=== PATIENT | female | born 1940 | race Two or more races ===

== ENCOUNTER 2016-10-03 14:20 | Inpatient (IN) | payer MEDICARE ==
[~2016-10-03] VITALS: Ht 163.8 cm; Wt 97.7 kg
[2016-10-03] MEDS ORDERED: RAMI25CA (14:30)
[2016-10-03] MEDS ORDERED: SIMV20TA2 (14:30)
[2016-10-03] MEDS ORDERED: ALBU17IN (14:30)
[2016-10-03] MEDS ORDERED: FURO20TA2 (14:30)
[2016-10-03] MEDS ORDERED: OMEP20CA3 (14:30)
[2016-10-03] MEDS ORDERED: FLUT1SPR2 (14:30)
[2016-10-03] MEDS ORDERED: SERT-155 (14:30)
[2016-10-03] MEDS ORDERED: FLUT11IN (14:30)
[2016-10-03] MEDS ORDERED: LEVO100T5 (14:30)
[2016-10-03] MEDS ORDERED: NS 1,000 ML IV ONE (15:00)
[2016-10-03] MEDS ORDERED: FAMOTIDINE IV BAG 20 MG in APPROPRIATE DILUENT 1 EA IV ONE (15:00)
[2016-10-03] MEDS ORDERED: ONDANSETRON 4MG/2ML VIAL (J2405) IV ONE (15:00)
[2016-10-03 15:05] LABS: BASO % 0.1 % (0.0-1.0); EOS % 0.2 % (0.0-3.0); LARGE UNSTAINED CELL # 0.1 K/mm3 (0.0-0.4); LARGE UNSTAINED CELL % 0.6 % (0.0-4.0); LYMPH # 0.7 K/mm3 (1.5-4.5); LYMPH % 5.4 % (24.0-44.0); MEAN CORPUSCULAR HEMOGLOBIN 29.4 pg (27.0-33.0); MEAN CORPUSCULAR HGB CONC 33.9 g/dl (32.0-36.5); MEAN CORPUSCULAR VOLUME 86.8 fl (80.0-96.0); MONO # 0.4 K/mm3 (0.0-0.8); MONO % 3.4 % (0.0-5.0); NEUTROPHILS # 11.2 K/mm3 (1.8-7.7); NEUTROPHILS % 90.3 % (36.0-66.0); PLATELET COUNT, AUTOMATED 229 k/mm3 (150-450); RED CELL DISTRIBUTION WIDTH 12.7 % (11.5-14.5); WHITE BLOOD COUNT 12.4 K/mm3 (4.0-10.0)
[2016-10-03 15:23] LABS: INR 1.11
[2016-10-03 15:27] LABS: ALBUMIN 3.2 GM/DL (3.2-5.2); ALBUMIN/GLOBULIN RATIO 0.73 (1.00-1.93); BILIRUBIN,DIRECT 0.3 MG/DL (0.0-0.2); BILIRUBIN,TOTAL 0.9 MG/DL (0.2-1.0); CALCIUM LEVEL 8.7 MG/DL (8.8-10.2); CREATININE FOR GFR 0.97 MG/DL (0.55-1.02); GLOMERULAR FILTRATION RATE 59.9 (>39); POTASSIUM SERUM 3.5 MEQ/L (3.5-5.1); TOTAL PROTEIN 7.6 GM/DL (6.4-8.2)
[2016-10-03] MEDS: MORPHINE 2 MG/ML 1ML SYRINGE IV PRN ×2 (15:31→16:34)
--- NOTE | 2016-10-03 16:08 | REP ---
CT study of the abdomen and pelvis without IV or oral contrast: History: Abdominal pain generalized with diarrhea. No comparison images. Findings: Preliminary digital mail agent radiograph demonstrates an unremarkable bowel gas pattern. Tubal ligation bands are visible in the pelvis. Axial CT images demonstrate linear fibrotic changes in the lung bases bilaterally and a granulomatous calcification on the right. The liver and the spleen are normal in size homogeneous in texture. There is a 2.7 cm accessory splenule medial to the spleen. Gallbladder is unremarkable. No pancreatic abnormality is seen. There is mild to moderate retroperitoneal and small bowel mesenteric lymphadenopathy. The largest of these nodes is a pericaval node between the vena cava and the aorta measuring 2.1 x 1.5 x 3.5 cm. There are multiple smaller lymph nodes. There is diverticulosis affecting the sigmoid colon. There is an abscess in the right lower quadrant which appears to communicate with a mildly dilated thick-walled appendix. The abscess cavity has an air-fluid level and a. It measures 3.4 cm in greatest diameter. There is inflammation and adjacent small bowel loop. This is not felt to be a diverticular abscess. There is inflammatory reaction and some pericolic gutter fluid is noted. A small quantity of fluid is seen in the pelvic reflections. The patient is status post hysterectomy. No free intraperitoneal air is noted. Impression: 1. Findings compatible with acute perforated appendicitis with a 3.4 cm periappendiceal abscess in the right lower quadrant. 2. Mild mesenteric and retroperitoneal lymphadenopathy, question lymphoma. The largest lymph node measures 2.1 x 1.5 x 3.5 cm. Signed by Nikolas Arriola MD 10/03/2016 06:09 P
[2016-10-03] MEDS ORDERED: PIPERACILLIN/TAZOBACTAM SOD 3.375 GM in D5W MINI-BAG PLUS 50 ML IV ONE (16:15)
[2016-10-03] MEDS ORDERED: FLON1SPR (16:36)
[2016-10-03] MEDS ORDERED: VITMTA PO (16:36)
[2016-10-03] MEDS ORDERED: SIMV20TA2 PO (16:36)
[2016-10-03] MEDS ORDERED: ALBU17IN INH (16:36)
[2016-10-03] MEDS ORDERED: LEVO100T54 PO (16:36)
[2016-10-03] MEDS ORDERED: SERT50TA PO (16:36)
[2016-10-03] MEDS ORDERED: ASPI81TA7 PO (16:36)
[2016-10-03] MEDS ORDERED: RAMI25CA PO (16:36)
[2016-10-03] MEDS ORDERED: OMEP20CA3 PO (16:36)
[2016-10-03] MEDS ORDERED: FLUT11IN INH (16:36)
[2016-10-03] MEDS ORDERED: FURO20TA2 PO (16:36)
[2016-10-03] MEDS ORDERED: metroNIDAZOLE 500 MG in APPROPRIATE DILUENT 1 EA IV SCH (17:00)
[2016-10-03] MEDS ORDERED: ONDANSETRON 4MG/2ML VIAL (J2405) IV PRN (17:00)
[2016-10-03] MEDS ORDERED: MORPHINE 4 MG/ML 1ML SYRINGE IV PRN (17:00)
[2016-10-03 17:41] VITALS: BP 140/63
[2016-10-03] MEDS: metroNIDAZOLE 500 MG in APPROPRIATE DILUENT 1 EA IV SCH (18:40)
[2016-10-03] MEDS: NORCO, ANEXSIA 5/325MG TABLET (HYDROcodone/ACETAMINOPHEN) PO PRN ×2 (18:40→21:50)
[2016-10-03] MEDS: LR 1,000 ML IV SCH (18:40)
[2016-10-03 21:00] VITALS: BP 117/55
[2016-10-03] MEDS: SENOKOT S TAB PO SCH (21:00)
[2016-10-03] MEDS: FAMOTIDINE 20 MG TAB PO SCH (21:47)
[2016-10-04] MEDS: PIPERACILLIN/TAZOBACTAM SOD 3.375 GM in D5W MINI-BAG PLUS 50 ML IV SCH ×5 (00:12→23:21)
[2016-10-04] MEDS: metroNIDAZOLE 500 MG in APPROPRIATE DILUENT 1 EA IV SCH ×3 (01:35→18:55)
[2016-10-04] MEDS: ACETAMINOPHEN TAB 650MG DOSE (2X325MG) PO PRN (04:15)
[2016-10-04] MEDS: LR 1,000 ML IV SCH ×3 (04:15→16:37)
[2016-10-04 05:55] VITALS: BP 116/58
[2016-10-04] MEDS: SENOKOT S TAB PO SCH ×2 (08:52→20:45)
[2016-10-04] MEDS: FAMOTIDINE 20 MG TAB PO SCH ×2 (09:26→20:45)
[2016-10-04] MEDS: NORCO, ANEXSIA 5/325MG TABLET (HYDROcodone/ACETAMINOPHEN) PO PRN ×3 (09:27→23:30)
--- NOTE | 2016-10-04 11:00 | HPEPDOC ---
General Date of Admission October 03, 2016 at 16:52 Attending Physician: PEYMAN MOYER MD Chief Complaint The patient is a 75-year-old female admitted with a reason for visit of Acute Perforated Appendicitis;Peritoneal Abscess. Source: Patient Exam Limitations: No limitations Timing/Duration: Week(s) (one week), Constant, Getting worse Severity: Severe Associated Symptoms: Fever, Chills, Loss of appetite, Malaise, Nausea (reports diarrhea up to 8 times a day. On the day of the ED presentation, patient reports fainting.) History of Present Illness Patient presents herself to the emergency room with complaints of 1 week history of ongoing abdominal pain. She describes the constant sharp pain on the middle upper abdomen extending from her epigastric area to the infraumbilical area. Started last Thursday of sudden onset. She denies any sick contacts. She initially describes pain located at the mid epigastric area. This was subsequently followed by passage of multiple loose stools. Patient reports up to 8 loose, watery stools a day. She followed up with her medical doctor the morning of presentation. She was subsequently sent to the emergency room for further evaluation. Initial assumption probably is some enteritis, diverticulitis. Also during this presentation, patient reports fainting spell due to weakness. Patient reports having no appetite, only drinking a small amount of liquids for the past week. Gets nauseated after taking anything orally. Reports low-grade fever. Home Medications Scheduled (Flonase Allergy Relief) 50 Mcg/Act Spr, 1 SPRAY NA DAILY, (Reported) Aspirin (Aspirin) 81 Mg Tab, 81 MG PO QHS, (Reported) Fluticasone Propionate (Flovent Hfa 110 MCG) 120 Puff/12 Gm Aero, 1 PUFF INH BID , (Reported) Furosemide (Furosemide) 20 Mg Tab, 20 MG PO DAILY, (Reported) Levothyroxine Sodium (Levoxyl) 100 Mcg Tab, 100 MCG PO DAILY, (Reported) Multivitamins *[facility]OCK[facility]* (Thera M Plus *[facility]OCK[facility]*) 1 Tab Tab, 1 TAB PO QHS , (Reported) Omeprazole (Omeprazole) 20 Mg Cap, 20 MG PO DAILY, (Reported) Ramipril (Ramipril) 2.5 Mg Cap, 2.5 MG PO QHS, (Reported) Sertraline Hcl (Sertraline HCl) 50 Mg Tab, 50 MG PO QHS, (Reported) Simvastatin (Simvastatin) 20 Mg Tab, 20 MG PO QHS, (Reported) Scheduled PRN Albuterol Sulfate (Ventolin Hfa) 200 Puff/8 Gm Aers, 2 PUFF INH Q4H PRN for SHORTNESS OF BREATH, (Reported) Allergies Coded Allergies: Codeine (Verified Adverse Reaction, Intermediate, 10/03/16) vomiting Family History Significant Family History: No pertinent family hx Social History * Smoker: Denies Alcohol: rarely Drugs: denies Recent Travel/Sick Contacts: Denies: Recent travel, Recent sick contacts Psychosocial History: No pertinent psych hx Review of Symptoms Constitutional: Reports: Fever, Malaise, Weakness Eyes: Denies: Pain, Vision change, Conjunctivae inflammation, Eyelid inflammation, Redness, Other ENT: Denies: Head Aches, Ear Pain, Dysphagia, Sinus Congestion, Post Nasal Drip , Sore Throat, Epistaxis, Other Symptoms Skin: Denies: Rash, Lesions, Jaundice, Bruising, Itching, Dry, Breakdown, Nail Changes, Other Pulmonary: Denies: Dyspnea, Cough, Pleuritic Chest Pain, Other Symptoms Cardiovascular: Denies: Chest Pain, Palpitations, Orthopnea, Paroxysmal Noc. Dyspnea, Edema, Lt Headedness, Other Symptoms Gastrointestinal: Reports: Nausea, Vomiting, Abdominal Pain, Diarrhea, Constipation, Melena, Hematochezia, Other Symptoms Genitourinary: Denies: Dysuria, Frequency, Incontinence, Hematuria, Retention, Other Symptoms Hematologic: Denies: Bruising, Bleeding Excessively, Petecchia, Purpura, Enlarged Lymph Nodes, Other Hematologic Endocrine: Denies: Polydipsia, Polyphagia, Polyuria, Heat Intolerance, Cold Intolerance, Other Endocrine Sx Musculoskeletal: Denies: Neck Pain, Back Pain, Shoulder Pain, Arm Pain, Hand Pain, Leg Pain, Foot Pain, Joint Pain, Muscle Pain, Spasms, Other Symptoms Neurological: Denies: Weakness, Numbness, Incoordination, Change in speech, Confusion, Seizures, Other Symptoms Psych: Denies: Mood Normal, Anxiety, Depression, Memory Issues, Thoughts of Self Harm, Anger, Thoughts of Harming Other, Other Psych Physical Examination General Exam: Positive: Alert, No Acute Distress Eye Exam: Positive: PERRLA, Conjunctiva & lids normal, EOMI, Negative: Sclera icteric ENT Exam: Positive: Atraumatic, Mucous membr. moist/pink, Pharynx Normal Neck Exam: Positive: Supple, Negative: JVD, thyromegaly Chest Exam: Positive: Clear to auscultation, Normal air movement Heart Exam: Positive: Rate Normal, Regular Rhythm, Normal S1, Normal S2, Negative: Murmurs, Rubs Abdomen Exam: Positive: Soft, Tenderness (patient tender to palpation over the midline periumbilical and infraumbilical area with some radiation to the suprapubic and right lower quadrant area, mild guarding), Negative: Mass Extremity Exam: Positive: Normal pulses, Negative: Clubbing, Cyanosis, Edema Skin Exam: Positive: Nl turgor and temperature, Negative: Breakdown, Lesion Neuro Exam: Positive: Normal Gait, Normal Speech, Cranial Nerves 3-12 NL, Reflexes 2+ Psych Exam: Positive: Mental status NL, Mood NL, Oriented x 3 Vital Signs Vital Signs Date Time Temp Pulse Resp B/P (MAP) Pulse Ox O2 Delivery O2 Flow Rate FiO2 10/04/16 09:27 18 10/04/16 05:55 97.9 60 116/58 (77) 90 Room Air Laboratory Data Labs 24H Laboratory Tests 2 10/03/16 14:59: White Blood Count 12.4H, Red Blood Count 4.07, Hemoglobin 12.0, Hematocrit 35.3L , Mean Corpuscular Volume 86.8, Mean Corpuscular Hemoglobin 29.4, Mean Corpuscular Hemoglobin Concent 33.9, Red Cell Distribution Width 12.7, Platelet Count 229, Neutrophils (%) (Auto) 90.3H, Lymphocytes (%) (Auto) 5.4L, Monocytes (%) (Auto) 3.4, Eosinophils (%) (Auto) 0.2, Basophils (%) (Auto) 0.1, Neutrophils # (Auto) 11.2H, Lymphocytes # (Auto) 0.7L, Monocytes # (Auto) 0.4, Eosinophils # (Auto) 0.0, Basophils # (Auto) 0.0, Large Unclassified Cells % 0.6 , Large Unclassified Cells # 0.1, Prothrombin Time 14.4, Prothromb Time International Ratio 1.11, Anion Gap 11, Glomerular Filtration Rate 59.9, Calcium Level 8.7L, Aspartate Amino Transf (AST/SGOT) 12L, Alanine Aminotransferase (ALT/SGPT) 17, Alkaline Phosphatase 82, Total Bilirubin 0.9, Direct Bilirubin 0.3H, Total Protein 7.6, Albumin 3.2, Albumin/Globulin Ratio 0.73L, Amylase Level 19L, Lipase 110 10/03/16 21:13: Urine Appearance CLEAR, Urine Color YELLOW, Urine pH 6.0, Urine Specific [place] 1.010, Urine Protein NEGATIVE, Urine Glucose (UA) NEGATIVE, Urine Ketones 1+H, Urine Urobilinogen 0.2, Urine Bilirubin NEGATIVE, Urine Leukocyte Esterase 1+H, Urine Blood NEGATIVE, Urine Nitrite NEGATIVE, Urine WBC (Auto) 9H , Urine RBC (Auto) 4H, Urine Hyaline Casts (Auto) 0, Urine Bacteria (Auto) 1+H, Urine Squamous Epithelial Cells 1, Urine Sperm (Auto) CBC/BMP Laboratory Tests 10/03/16 14:59 Red Blood Count 4.07, Mean Corpuscular Volume 86.8, Mean Corpuscular Hemoglobin 29.4, Mean Corpuscular Hemoglobin Concent 33.9, Red Cell Distribution Width 12.7 , Neutrophils (%) (Auto) 90.3 H, Lymphocytes (%) (Auto) 5.4 L, Monocytes (%) ( Auto) 3.4, Eosinophils (%) (Auto) 0.2, Basophils (%) (Auto) 0.1, Neutrophils # ( Auto) 11.2 H, Lymphocytes # (Auto) 0.7 L, Monocytes # (Auto) 0.4, Eosinophils # (Auto) 0.0, Basophils # (Auto) 0.0 Microbiology Microbiology 10/03/16 Urine Culture, Received Pending Problems (1) Acute perforated appendicitis Status: Acute Problem Text: I spoke with her the plans going forward. She has perforated appendicitis with a well localized abscess surrounding the tip of the appendix at this point. Would deal with the abscess first. Ideally would like the abscess collection drained percutaneously by radiology. This will be set up on Thursday. She appears stable now and not showing any signs of severe sepsis. I also discussed whether the different scenarios including possible need for surgery if drainage is not possible. Also if drainage is done, how to deal with the appendix afterwards. She reports she has had multiple colonoscopies, the last one was 4 years ago with single polyp found. I think if he chooses not to have interval appendectomy, her option would be just to have another colonoscopy to verify no other pathology causing the right lower quadrant inflammation/perforation. Her chances of having another recurrent attack of appendicitis usually comes back to same as her age within a few months if there are no appendicoliths and if she does not have any recurring or persistent pain symptoms. (2) Peritoneal abscess Status: Acute Problem Text: Patient has a 3 cm abscess as visualized in the CT of the abdomen and pelvis. Review of the images shows there are bowels close by. Unsure if drainage is possible. We will continue with IV antibiotics. Patient is on Zosyn and metronidazole. We'll repeat imaging on Thursday and consult interventional radiology for possible drainage of the abscess. Plan / VTE VTE Prophylaxis Ordered?: Yes Plan Plan Patient is admitted under my care. She started on Zosyn and metronidazole for antibiotic coverage. He will repeat the CT scan on Thursday and consult radiology for possible percutaneous drainage of the abscess. PEYMAN MOYER MD October 04, 2016 11:00
[2016-10-04] MEDS ORDERED: ALBUTEROL 90 MCG/ACT 8GM HFA INHALER INH PRN (11:15)
[2016-10-04 14:00] VITALS: BP 115/56
[2016-10-04] MEDS: FLUTICASONE PROP 0.05% NASAL SPRAY 16 GM (FLONASE) SCH (14:13)
[2016-10-04] MEDS: LEVOTHYROXINE 0.1 MG TAB (100 MCG) PO SCH (14:13)
[2016-10-04] MEDS: RAMIPRIL 2.5 MG CAP PO SCH (14:13)
[2016-10-04] MEDS: OMEPRAZOLE 20 MG CAP PO SCH (14:13)
[2016-10-04] MEDS: ENOXAPARIN 30 MG/0.3 ML SYR (J1650) SC SCH (14:13)
[2016-10-04] MEDS: SERTRALINE HCL 50 MG TAB PO SCH (14:13)
[2016-10-04] MEDS: FLUTICASONE HFA 110 MCG 12 GM INHALER (FLOVENT) INH SCH ×2 (14:17→21:00)
[2016-10-04] MEDS: SIMVASTATIN 20 MG TAB PO SCH (20:45)
[2016-10-04 22:00] VITALS: BP 117/57
[2016-10-05] MEDS: metroNIDAZOLE 500 MG in APPROPRIATE DILUENT 1 EA IV SCH ×3 (00:53→18:10)
[2016-10-05] MEDS: LR 1,000 ML IV SCH (04:49)
[2016-10-05] MEDS: LEVOTHYROXINE 0.1 MG TAB (100 MCG) PO SCH (05:06)
[2016-10-05] MEDS: PIPERACILLIN/TAZOBACTAM SOD 3.375 GM in D5W MINI-BAG PLUS 50 ML IV SCH ×4 (05:06→21:53)
[2016-10-05 06:00] VITALS: BP 122/56
[2016-10-05 06:13] LABS: BASO % 0.3 % (0.0-1.0); EOS # 0.1 K/mm3 (0.0-0.50); EOS % 1.4 % (0.0-3.0); LARGE UNSTAINED CELL # 0.1 K/mm3 (0.0-0.4); LYMPH # 0.6 K/mm3 (1.5-4.5); LYMPH % 5.3 % (24.0-44.0); MEAN CORPUSCULAR HEMOGLOBIN 28.4 pg (27.0-33.0); MEAN CORPUSCULAR VOLUME 86.1 fl (80.0-96.0); MONO # 0.4 K/mm3 (0.0-0.8); MONO % 4.5 % (0.0-5.0); NEUTROPHILS # 8.1 K/mm3 (1.8-7.7); NEUTROPHILS % 87.5 % (36.0-66.0); PLATELET COUNT, AUTOMATED 250 k/mm3 (150-450); RED CELL DISTRIBUTION WIDTH 12.8 % (11.5-14.5); WHITE BLOOD COUNT 9.2 K/mm3 (4.0-10.0)
[2016-10-05 06:31] LABS: ANION GAP 8 MEQ/L (8-16); BLOOD UREA NITROGEN 8 MG/DL (7-18); CALCIUM LEVEL 7.7 MG/DL (8.8-10.2); CARBON DIOXIDE LEVEL 26 MEQ/L (21-32); CHLORIDE LEVEL 102 MEQ/L (98-107); CREATININE FOR GFR 0.78 MG/DL (0.55-1.02); GLOMERULAR FILTRATION RATE > 60.0 (>39); GLUCOSE, FASTING 102 MG/DL (83-110); POTASSIUM SERUM 3.2 MEQ/L (3.5-5.1); SODIUM LEVEL 136 MEQ/L (136-145)
[2016-10-05] MEDS: FLUTICASONE HFA 110 MCG 12 GM INHALER (FLOVENT) INH SCH (07:27)
[2016-10-05] MEDS: SENOKOT S TAB PO SCH ×2 (09:00→20:37)
[2016-10-05] MEDS: FAMOTIDINE 20 MG TAB PO SCH ×2 (09:11→20:37)
[2016-10-05] MEDS: RAMIPRIL 2.5 MG CAP PO SCH (09:11)
[2016-10-05] MEDS: OMEPRAZOLE 20 MG CAP PO SCH (09:11)
[2016-10-05] MEDS: SERTRALINE HCL 50 MG TAB PO SCH (09:11)
[2016-10-05] MEDS: FLUTICASONE PROP 0.05% NASAL SPRAY 16 GM (FLONASE) SCH (09:13)
[2016-10-05] MEDS: ENOXAPARIN 30 MG/0.3 ML SYR (J1650) SC SCH (09:13)
[2016-10-05] MEDS: NORCO, ANEXSIA 5/325MG TABLET (HYDROcodone/ACETAMINOPHEN) PO PRN ×4 (09:13→22:01)
[2016-10-05] MEDS: KCL 20MEQ IN D5/0.45NS 1000ML 1,000 ML IV SCH ×2 (09:25→21:52)
[2016-10-05] MEDS: POTASSIUM CHLORIDE 10 MEQ SR TABLET PO SCH (09:26)
--- NOTE | 2016-10-05 10:12 | IPNPDOC ---
Subjective General Date/Time Seen The patient was seen on 10/05/16 at 09:05. Sitting on a chair, pleasant, appears comfortable. She reports mild improvement of her abdominal discomfort. Her stools are getting less watery. Only 1 BM reported. Denies nausea, but no appetite. On clears. Afebrile Subject Chief Complaint/History The patient is a 75-year-old female admitted with a reason for visit of Acute Perforated Appendicitis;Peritoneal Abscess. She reports mild improvement of pain, nausea. Tolerating clears. Afebrile here. Only 1 BM recorded still loose. Current Medications Current Medications Current Medications Acetaminophen (Tylenol Tab) 650 mg Q4HP PRN PO MILD PAIN or TEMP > 101 Last administered on 10/04/16 04:15; Start 10/03/16 at 17:00; Stop 11/02/16 at 16:59 Acetaminophen/ Hydrocodone Bitart ([place], Anexsia 5/325) 1 tab Q4HP PRN PO MODERATE PAIN (PS 5-7) Last administered on 10/04/16 23:30; Start 10/03/16 at 17:00; Stop 10/10/16 at 16:59 Acetaminophen/ Hydrocodone Bitart ([place], Anexsia 5/325) 2 tab Q6HP PRN PO SEVERE PAIN (PS 8-10) Last administered on 10/04/16 14:24; Start 10/03/16 at 17 :00; Stop 10/10/16 at 16:59 Albuterol Sulfate (Proventil, Ventolin Hfa) 2 puff Q4HP PRN INH SHORTNESS OF BREATH; Start 10/04/16 at 11:15; Stop 11/03/16 at 11:14 Enoxaparin Sodium (Lovenox) 30 mg DAILY SC Last administered on 10/04/16 14:13 ; Start 10/04/16 at 09:00; Stop 10/09/16 at 08:59 Famotidine (Pepcid) 20 mg BID PO Last administered on 10/04/16 20:45; Start at 21:00; Stop 11/02/16 at 20:59 Fluticasone Propionate (Flonase 0.05% Nasal [place]) 2 spray DAILY NA Last administered on 10/04/16 14:13; Start 10/04/16 at 09:00; Stop 11/03/16 at 08:59 Fluticasone Propionate (Flovent Hfa 110 Mcg) 1 puff BID INH Last administered on 10/05/16 07:27; Start 10/04/16 at 09:00; Stop 11/03/16 at 08:59 Home Med (Med Rec Complete!) ASDIRECTED XX ; Start 10/03/16 at 16:45; Stop 05/10 at 16:45; Status DC Lactated Ringer's 1,000 ml @ 125 mls/hr Q8H IV Last administered on 10/05/16 04:49; Start 10/03/16 at 16:52; Stop 10/05/16 at 09:04; Status DC Levothyroxine Sodium (Synthroid) 0.1 mg DAILY@06 PO Last administered on 05:06; Start 10/04/16 at 06:00; Stop 11/03/16 at 05:59 Metronidazole 500 mg/IV Miscellaneous Supplies 100 ml @ 100 mls/hr Q8H IV ; Start 10/03/16 at 17:00; Stop 10/03/16 at 17:08; Status DC Metronidazole 500 mg/IV Miscellaneous Supplies 100 ml @ 100 mls/hr Q8H IV Last administered on 10/05/16 00:53; Start 10/03/16 at 18:00; Stop 10/10/16 at 17:59 Morphine Sulfate (Morphine Sulfate Inj) 2 mg Q15M PRN IV MODERATE/SEVERE PAIN ( PS 5-10) Last administered on 10/03/16 16:34; Start 10/03/16 at 15:00 Morphine Sulfate (Morphine Sulfate Inj) 4 mg Q4HP PRN IV SEVERE PAIN (PS 8-10) ; Start 10/03/16 at 17:00; Stop 10/10/16 at 16:59 Omeprazole (PriLOSEC) 20 mg DAILY PO Last administered on 10/04/16 14:13; Start 10/04/16 at 09:00; Stop 11/03/16 at 08:59 Ondansetron HCl (ZOFRAN INJection) 4 mg Q6HP PRN IV NAUSEA OR VOMITING Last administered on 10/05/16 05:06; Start 10/03/16 at 17:00; Stop 11/02/16 at 16:59 Piperacillin Sod/ Tazobactam Sod 3.375 gm/Dextrose 50 ml @ 50 mls/hr Q6H IV Last administered on 10/05/16 05:06; Start 10/03/16 at 23:00; Stop 10/10/16 at 22:59 Potassium Chloride/Dextrose/ Sod Cl 1,000 ml @ 100 mls/hr Q10H IV ; Start 10/05 at 09:15; Stop 11/04/16 at 09:14; Status UNV Potassium Chloride (Micro-K Extencaps) 20 meq DAILY PO ; Start 10/06/16 at 09:00 ; Stop 11/05/16 at 08:59; Status UNV Ramipril (Altace) 2.5 mg DAILY PO Last administered on 10/04/16 14:13; Start 10/04/16 at 09:00; Stop 11/03/16 at 08:59 Senna/Docusate Sodium (Senokot S) 1 tab BID PO Last administered on 10/04/16 20:45; Start 10/03/16 at 21:00; Stop 11/02/16 at 20:59 Sertraline HCl (Zoloft) 50 mg DAILY PO Last administered on 10/04/16 14:13; Start 10/04/16 at 09:00; Stop 11/03/16 at 08:59 Simvastatin (Zocor) 20 mg QHS PO Last administered on 10/04/16 20:45; Start at 21:00; Stop 11/03/16 at 20:59 Allergies Coded Allergies: Codeine (Verified Adverse Reaction, Intermediate, 10/03/16) vomiting Objective Physical Examination Examination GENERAL APPEARANCE:[Patient seen, laying in bed, awake, alert, and oriented. Comfortable, in no acute distress]. SKIN: [Warm and moist]. HEENT: [Normocephalic, atraumatic. [place] palpebral conjunctiva, anicteric sclerae. Lips and mucosa appear moist]. NECK: [Supple, no thyromegaly. No obvious jugular venous distention]. LUNGS: [Clear to auscultation bilaterally. No wheezing appreciated]. HEART: [No chest wall abnormalities. Regular rate and rhythm with no murmurs appreciated]. ABDOMEN: Abdomen is round, minimally distended, soft, Mildly tender on lower infraumbilical area, with no rebound or guarding EXTREMITIES: [Extremities have no deformities. No edema identified]. Vital Signs Vital Signs Date Time Temp Pulse Resp B/P (MAP) Pulse Ox O2 Delivery O2 Flow Rate FiO2 10/05/16 06:00 98.9 90 17 122/56 (78) 90 Room Air I&Os I&O- Last 24 Hours up to 6 AM 10/05/16 05:59 Intake Total 3950 ml Output Total 800 ml Balance 3150 ml Laboratory Data Labs 24H Laboratory Tests 2 10/05/16 05:46: White Blood Count 9.2, Red Blood Count 3.42L, Hemoglobin 9.7#L, Hematocrit 29.5L , Mean Corpuscular Volume 86.1, Mean Corpuscular Hemoglobin 28.4, Mean Corpuscular Hemoglobin Concent 33.0, Red Cell Distribution Width 12.8, Platelet Count 250, Neutrophils (%) (Auto) 87.5H, Lymphocytes (%) (Auto) 5.3L, Monocytes (%) (Auto) 4.5, Eosinophils (%) (Auto) 1.4, Basophils (%) (Auto) 0.3, Neutrophils # (Auto) 8.1H, Lymphocytes # (Auto) 0.6L, Monocytes # (Auto) 0.4, Eosinophils # (Auto) 0.1, Basophils # (Auto) 0.0, Large Unclassified Cells % 1.0 , Large Unclassified Cells # 0.1, Anion Gap 8, Glomerular Filtration Rate > 60.0 , Blood Urea Nitrogen 8, Creatinine 0.78, Sodium Level 136, Potassium Level 3.2L , Chloride Level 102, Carbon Dioxide Level 26, Calcium Level 7.7L CBC/BMP Laboratory Tests 10/05/16 05:46 Red Blood Count 3.42 L, Mean Corpuscular Volume 86.1, Mean Corpuscular Hemoglobin 28.4, Mean Corpuscular Hemoglobin Concent 33.0, Red Cell Distribution Width 12.8, Neutrophils (%) (Auto) 87.5 H, Lymphocytes (%) (Auto) 5.3 L, Monocytes (%) (Auto) 4.5, Eosinophils (%) (Auto) 1.4, Basophils (%) (Auto ) 0.3, Neutrophils # (Auto) 8.1 H, Lymphocytes # (Auto) 0.6 L, Monocytes # (Auto ) 0.4, Eosinophils # (Auto) 0.1, Basophils # (Auto) 0.0, Calcium Level 7.7 L Microbiology Microbiology 10/04/16 Gastrointestinal Tract Panel (PCR) - Final, Complete Campylobacter Enteropathogenic E.coli 10/03/16 Urine Culture - Final, Complete Imaging Studies CT abdomen and pelvis done on ED presentation Impression Intraabdominal abscess from perforated appendicitis Continue antibiotics (zosyn, metronidazole day 2)- should cover for E coli, and campylobacter in her stools also. Will have radiology try to drain abscess percutaneously Continue on clears Continue ambulation Plan / VTE VTE Prophylaxis Ordered?: Yes PEYMAN MOYER MD October 05, 2016 09:07
[2016-10-05 14:00] VITALS: BP 109/54
[2016-10-05] MEDS: SIMVASTATIN 20 MG TAB PO SCH (20:37)
[2016-10-05 22:00] VITALS: BP 118/61
[2016-10-06] MEDS: metroNIDAZOLE 500 MG in APPROPRIATE DILUENT 1 EA IV SCH ×3 (01:27→18:35)
[2016-10-06] MEDS: NORCO, ANEXSIA 5/325MG TABLET (HYDROcodone/ACETAMINOPHEN) PO PRN ×2 (03:17→08:06)
[2016-10-06] MEDS: LEVOTHYROXINE 0.1 MG TAB (100 MCG) PO SCH (05:03)
[2016-10-06] MEDS: PIPERACILLIN/TAZOBACTAM SOD 3.375 GM in D5W MINI-BAG PLUS 50 ML IV SCH ×4 (05:03→22:47)
[2016-10-06 05:51] LABS: BASO % 0.2 % (0.0-1.0); EOS # 0.2 K/mm3 (0.0-0.50); EOS % 1.9 % (0.0-3.0); LARGE UNSTAINED CELL # 0.1 K/mm3 (0.0-0.4); LARGE UNSTAINED CELL % 1.5 % (0.0-4.0); LYMPH # 0.6 K/mm3 (1.5-4.5); LYMPH % 5.6 % (24.0-44.0); MEAN CORPUSCULAR HEMOGLOBIN 28.6 pg (27.0-33.0); MEAN CORPUSCULAR VOLUME 86.6 fl (80.0-96.0); MONO # 0.3 K/mm3 (0.0-0.8); NEUTROPHILS # 7.3 K/mm3 (1.8-7.7); NEUTROPHILS % 86.8 % (36.0-66.0); PLATELET COUNT, AUTOMATED 258 k/mm3 (150-450); RED CELL DISTRIBUTION WIDTH 12.8 % (11.5-14.5); WHITE BLOOD COUNT 8.4 K/mm3 (4.0-10.0)
[2016-10-06 06:00] VITALS: BP 121/60
[2016-10-06 06:18] LABS: ANION GAP 8 MEQ/L (8-16); BLOOD UREA NITROGEN 4 MG/DL (7-18); CALCIUM LEVEL 7.6 MG/DL (8.8-10.2); CARBON DIOXIDE LEVEL 25 MEQ/L (21-32); CHLORIDE LEVEL 105 MEQ/L (98-107); CREATININE FOR GFR 0.74 MG/DL (0.55-1.02); GLOMERULAR FILTRATION RATE > 60.0 (>39); GLUCOSE, FASTING 117 MG/DL (83-110); POTASSIUM SERUM 3.5 MEQ/L (3.5-5.1); SODIUM LEVEL 138 MEQ/L (136-145)
[2016-10-06] MEDS: FLUTICASONE HFA 110 MCG 12 GM INHALER (FLOVENT) INH SCH ×2 (07:43→20:03)
[2016-10-06] MEDS: KCL 20MEQ IN D5/0.45NS 1000ML 1,000 ML IV SCH ×2 (08:23→15:22)
[2016-10-06] MEDS: POTASSIUM CHLORIDE 10 MEQ SR TABLET PO SCH (08:24)
[2016-10-06] MEDS: OMEPRAZOLE 20 MG CAP PO SCH (08:24)
[2016-10-06] MEDS: FLUTICASONE PROP 0.05% NASAL SPRAY 16 GM (FLONASE) SCH (08:24)
[2016-10-06] MEDS: SENOKOT S TAB PO SCH ×2 (08:24→20:38)
[2016-10-06] MEDS: ENOXAPARIN 30 MG/0.3 ML SYR (J1650) SC SCH (08:24)
[2016-10-06] MEDS: FAMOTIDINE 20 MG TAB PO SCH ×2 (08:24→20:38)
[2016-10-06] MEDS: RAMIPRIL 2.5 MG CAP PO SCH (08:24)
[2016-10-06] MEDS: SERTRALINE HCL 50 MG TAB PO SCH (08:24)
[2016-10-06] MEDS ORDERED: LIDOCAINE 1% MDV 20ML VIAL As Ordered ONE (11:19)
[2016-10-06 14:00] VITALS: BP 146/67
[2016-10-06] MEDS: SIMVASTATIN 20 MG TAB PO SCH (20:38)
[2016-10-06] MEDS: ACETAMINOPHEN TAB 650MG DOSE (2X325MG) PO PRN (21:18)
[2016-10-06 22:00] VITALS: BP 155/71
[2016-10-07] MEDS: metroNIDAZOLE 500 MG in APPROPRIATE DILUENT 1 EA IV SCH ×2 (01:09→08:56)
[2016-10-07] MEDS: KCL 20MEQ IN D5/0.45NS 1000ML 1,000 ML IV SCH (01:10)
[2016-10-07 02:30] VITALS: BP 159/72
[2016-10-07] MEDS ORDERED: SLF 3 ML SYR IV PRN (03:30)
[2016-10-07] MEDS: IPRATROPIUM 0.5MG/ALBUTEROL 2.5MG INH SOL UD 3ML (DUONEB)(J7620) NEB PRN (03:42)
[2016-10-07 04:00] VITALS: BP 140/64
--- NOTE | 2016-10-07 04:40 | REPUSA ---
CLINICAL HISTORY: Shortness of breath. COMMENTS: The cardiac silhouette is enlarged. There is evidence for pulmonary venous congestion compatible with CHF. Right perihilar air space opacities. There is no definite radiographic evidence for a lung mass. Bony structures appear normal. IMPRESSION: 1. Enlarged cardiac silhouette. 2. Pulmonary venous congestion compatible with CHF. Right perihilar air space opacities. Thank you for your kind referral of this patient.
[2016-10-07] MEDS ORDERED: FUROSEMIDE 20 MG/2 ML VIAL (J1940) IV ONE (04:45)
[2016-10-07] MEDS: LEVOTHYROXINE 0.1 MG TAB (100 MCG) PO SCH (05:08)
[2016-10-07] MEDS: PIPERACILLIN/TAZOBACTAM SOD 3.375 GM in D5W MINI-BAG PLUS 50 ML IV SCH ×4 (05:08→22:15)
[2016-10-07] MEDS: SLF 3 ML SYR IV SCH ×3 (05:08→22:16)
[2016-10-07 06:00] VITALS: BP 149/65
[2016-10-07 07:22] LABS: BASO % 0.6 % (0.0-1.0); EOS # 0.1 K/mm3 (0.0-0.50); LARGE UNSTAINED CELL # 0.3 K/mm3 (0.0-0.4); LARGE UNSTAINED CELL % 3.8 % (0.0-4.0); LYMPH # 0.9 K/mm3 (1.5-4.5); LYMPH % 7.3 % (24.0-44.0); MEAN CORPUSCULAR HEMOGLOBIN 28.3 pg (27.0-33.0); MEAN CORPUSCULAR HGB CONC 32.8 g/dl (32.0-36.5); MEAN CORPUSCULAR VOLUME 86.1 fl (80.0-96.0); MONO # 0.4 K/mm3 (0.0-0.8); MONO % 4.8 % (0.0-5.0); NEUTROPHILS # 6.4 K/mm3 (1.8-7.7); NEUTROPHILS % 82.5 % (36.0-66.0); PLATELET COUNT, AUTOMATED 346 k/mm3 (150-450); RED CELL DISTRIBUTION WIDTH 12.8 % (11.5-14.5); WHITE BLOOD COUNT 7.8 K/mm3 (4.0-10.0)
[2016-10-07 07:37] LABS: ANION GAP 5 MEQ/L (8-16); BLOOD UREA NITROGEN 3 MG/DL (7-18); CALCIUM LEVEL 8.5 MG/DL (8.8-10.2); CARBON DIOXIDE LEVEL 32 MEQ/L (21-32); CHLORIDE LEVEL 103 MEQ/L (98-107); GLOMERULAR FILTRATION RATE > 60.0 (>39); GLUCOSE, FASTING 120 MG/DL (83-110); POTASSIUM SERUM 3.1 MEQ/L (3.5-5.1); SODIUM LEVEL 140 MEQ/L (136-145)
[2016-10-07] MEDS: FLUTICASONE HFA 110 MCG 12 GM INHALER (FLOVENT) INH SCH ×2 (08:07→20:16)
--- NOTE | 2016-10-07 08:47 | REP ---
CT GUIDED ABSCESS DRAIN: The procedure was performed under the direct supervision of Dr. Arriola. The risks and benefits of the procedure were explained to the patient and informed consent was obtained. The patient has a history of an abscess in the right lower quadrant seen on a previous CT scan dated 10/03/2016. The right lower quadrant abscess was localized using CT guidance. The skin was prepped and draped in a sterile fashion. 1% Xylocaine was used as a local anesthetic. Using CT guidance, an 8-[place] Skater APDL catheter was inserted using trocar technique. 20 mL of brown colored fluid was withdrawn and sent to the lab. The catheter was affixed to the skin and a sterile dressing was applied. The catheter was connected to a gravity drainage bag. The patient tolerated the procedure well and there were no immediate complications. Reviewed by RENO Shook 10/07/2016 07:28 PEdited and Signed by Nikolas Arriola MD 10/08/2016 09:03 A
[2016-10-07] MEDS: FLUTICASONE PROP 0.05% NASAL SPRAY 16 GM (FLONASE) SCH (08:59)
[2016-10-07] MEDS: POTASSIUM CHLORIDE 10 MEQ SR TABLET PO SCH ×3 (08:59→20:22)
[2016-10-07] MEDS: FAMOTIDINE 20 MG TAB PO SCH (09:00)
[2016-10-07] MEDS: SENOKOT S TAB PO SCH (09:00)
[2016-10-07] MEDS: RAMIPRIL 2.5 MG CAP PO SCH (09:00)
[2016-10-07] MEDS: OMEPRAZOLE 20 MG CAP PO SCH (09:00)
[2016-10-07] MEDS: SERTRALINE HCL 50 MG TAB PO SCH (09:00)
[2016-10-07] MEDS: ENOXAPARIN 30 MG/0.3 ML SYR (J1650) SC SCH (09:01)
[2016-10-07 14:00] VITALS: BP 162/76
[2016-10-07] MEDS: FUROSEMIDE 20 MG TAB PO SCH (14:21)
[2016-10-07] MEDS: SIMVASTATIN 20 MG TAB PO SCH (20:20)
[2016-10-07 22:00] VITALS: BP 129/61
[2016-10-08] MEDS: IPRATROPIUM 0.5MG/ALBUTEROL 2.5MG INH SOL UD 3ML (DUONEB)(J7620) NEB PRN (04:54)
[2016-10-08] MEDS: PIPERACILLIN/TAZOBACTAM SOD 3.375 GM in D5W MINI-BAG PLUS 50 ML IV SCH ×3 (05:10→17:20)
[2016-10-08] MEDS: SLF 3 ML SYR IV SCH ×2 (05:11→11:31)
[2016-10-08 06:00] VITALS: BP 158/84
[2016-10-08] MEDS: LEVOTHYROXINE 0.1 MG TAB (100 MCG) PO SCH (06:00)
[2016-10-08 06:14] LABS: ANION GAP 8 MEQ/L (8-16); BLOOD UREA NITROGEN 5 MG/DL (7-18); CALCIUM LEVEL 8.4 MG/DL (8.8-10.2); CARBON DIOXIDE LEVEL 27 MEQ/L (21-32); CHLORIDE LEVEL 106 MEQ/L (98-107); CREATININE FOR GFR 0.75 MG/DL (0.55-1.02); GLOMERULAR FILTRATION RATE > 60.0 (>39); GLUCOSE, FASTING 117 MG/DL (83-110); POTASSIUM SERUM 3.6 MEQ/L (3.5-5.1); SODIUM LEVEL 141 MEQ/L (136-145)
[2016-10-08 07:18] LABS: BASO % 0.7 % (0.0-1.0); EOS # 0.2 K/mm3 (0.0-0.50); EOS % 2.2 % (0.0-3.0); LARGE UNSTAINED CELL # 0.4 K/mm3 (0.0-0.4); LARGE UNSTAINED CELL % 4.9 % (0.0-4.0); LYMPH # 1.5 K/mm3 (1.5-4.5); LYMPH % 14.3 % (24.0-44.0); MEAN CORPUSCULAR HEMOGLOBIN 28.4 pg (27.0-33.0); MEAN CORPUSCULAR HGB CONC 32.9 g/dl (32.0-36.5); MEAN CORPUSCULAR VOLUME 86.3 fl (80.0-96.0); MONO # 0.4 K/mm3 (0.0-0.8); MONO % 5.2 % (0.0-5.0); NEUTROPHILS # 5.5 K/mm3 (1.8-7.7); NEUTROPHILS % 72.6 % (36.0-66.0); PLATELET COUNT, AUTOMATED 363 k/mm3 (150-450); WHITE BLOOD COUNT 7.5 K/mm3 (4.0-10.0)
[2016-10-08] MEDS: FLUTICASONE HFA 110 MCG 12 GM INHALER (FLOVENT) INH SCH (08:55)
[2016-10-08 09:31] VITALS: BP 158/84
[2016-10-08] MEDS: ENOXAPARIN 30 MG/0.3 ML SYR (J1650) SC SCH (09:31)
[2016-10-08] MEDS: OMEPRAZOLE 20 MG CAP PO SCH (09:31)
[2016-10-08] MEDS: RAMIPRIL 2.5 MG CAP PO SCH (09:31)
[2016-10-08] MEDS: SERTRALINE HCL 50 MG TAB PO SCH (09:31)
[2016-10-08] MEDS: POTASSIUM CHLORIDE 10 MEQ SR TABLET PO SCH (09:31)
[2016-10-08] MEDS: FUROSEMIDE 20 MG TAB PO SCH (09:31)
[2016-10-08] MEDS: FLUTICASONE PROP 0.05% NASAL SPRAY 16 GM (FLONASE) SCH (09:32)
[2016-10-08 14:00] VITALS: BP 133/59
[2016-10-08] MEDS ORDERED: CIPR500T3 PO (18:33)
== END 2016-10-08 19:45 | disposition home or self-care (01) | DRG 373 ==
LOC: M ED 16:08 → M ED INP 16:52 → M MSPAV 17:41
PROVIDERS: ADMIT Surgery; ATTEND Surgery
PROC: 0D9J30Z Drainage of Appendix with Drainage Device, Percutaneous Approach (ICD-10-PCS; principal; 2016-10-06)
DX: K35.3 Acute appendicitis with localized peritonitis (principal); Z79.82 Long term (current) use of aspirin; Z79.899 Other long term (current) drug therapy; Z88.5 Allergy status to narcotic agent

== ENCOUNTER → 2016-11-03 | Outpatient (CLI) | payer MEDICARE ==
[~2016-11-03] MED LIST: ALBU17IN; ALBU17IN INH; ASPI1TAB15 PO; CIPR-249 PO; CIPR500T3 PO; FLAG500T PO; FLON1SPR; FLUT11IN; FLUT11IN INH; FLUT1SPR2; FURO20TA2; FURO20TA2 PO; GASTROGRAFIN SOLUTION 30ML (Q9963) As Ordered ONE; HYDR-3719 PO; ISOVUE-370 76% 100ML VIAL (Q9967) As Ordered ONE; LEVO100T5; LEVO100T54 PO; METR1TAB66 PO; OMEP20CA3; OMEP20CA3 PO; RAMI25CA; RAMI25CA PO; SERT-155; SERT50TA PO; SIMV20TA2; SIMV20TA2 PO; VITMTA PO
--- NOTE | 2016-11-03 18:25 | REP ---
CT ABDOMEN AND PELVIS WITH CONTRAST: HISTORY: Abscess. CONTRAST: Isovue-370 100 mL. COMPARISON: 10/03/2016. The liver, gallbladder, pancreas, spleen, adrenal glands and kidneys are normal in appearance. An accessory spleen is present. Enlarged lymph nodes measuring up to 1.6 cm are present in the paraaortic region. Diverticula are present in the descending colon. Linear densities are present in the lower lobe consistent with atelectasis or scar. IMPRESSION: 1. There are enlarged lymph nodes measuring up to 1.6 cm in width in the paraaortic area. 2. Diverticulosis. CT PELVIS: The patient is status-post hysterectomy. The urinary bladder is normal in appearance. Diverticula are present in the descending and sigmoid colon. An abscess is present in the right lower quadrant. The abscess measures 6 cm in transverse x 5.8 cm in AP dimensions and is increased in size compared to the previous study, stranding is present in the surrounding tissue consistent with edema. A small amount of free fluid is present. Degenerative change is present in the spine. IMPRESSION: 1. Diverticulosis. 2. There has been an increase in size of the right lower quadrant abscess. 3. The patient is status-post hysterectomy. Signed by Fabián Pino MD 11/03/2016 06:58 P
== END ==
LOC: M RAD 15:49
PROVIDERS: ATTEND Surgery
DX: K35.3 Acute appendicitis with localized peritonitis (principal); R59.0 Localized enlarged lymph nodes; K57.30 Diverticulosis of large intestine without perforation or abscess without bleeding; K65.1 Peritoneal abscess; Z90.710 Acquired absence of both cervix and uterus

== ENCOUNTER 2016-11-04 07:56 | Inpatient (IN) | payer MEDICARE ==
[~2016-11-04] VITALS: Ht 162.6 cm; Wt 90.1 kg
[~2016-11-04 07:56] MED LIST changes: -ASPI1TAB15 PO; +ASPI81TA7 PO; -CIPR-249 PO; -FLAG500T PO; -GASTROGRAFIN SOLUTION 30ML (Q9963) As Ordered ONE; -HYDR-3719 PO; -ISOVUE-370 76% 100ML VIAL (Q9967) As Ordered ONE; -METR1TAB66 PO
[2016-11-04] MEDS ORDERED: ONDANSETRON 4MG/2ML VIAL (J2405) IV PRN (08:30)
[2016-11-04] MEDS ORDERED: NORCO, ANEXSIA 5/325MG TABLET (HYDROcodone/ACETAMINOPHEN) PO PRN (08:30)
[2016-11-04] MEDS ORDERED: ACETAMINOPHEN TAB 650MG DOSE (2X325MG) PO PRN (08:30)
[2016-11-04] MEDS ORDERED: MORPHINE 4 MG/ML 1ML SYRINGE IV PRN (08:30)
[2016-11-04 08:55] VITALS: BP 117/57
[2016-11-04] MEDS ORDERED: CIPROFLOXACIN 400 MG in APPROPRIATE DILUENT 1 EA IV SCH (09:00)
[2016-11-04] MEDS: SENOKOT S TAB PO SCH ×2 (09:00→21:00)
[2016-11-04] MEDS ORDERED: metroNIDAZOLE 500 MG in APPROPRIATE DILUENT 1 EA IV SCH (10:00)
[2016-11-04] MEDS ORDERED: LIDOCAINE 1% MDV 20ML VIAL As Ordered ONE (10:48)
[2016-11-04] MEDS ORDERED: ISOVUE-300 61% 50ML VIAL (Q9967) As Ordered ONE ×2 (11:04→11:47)
[2016-11-04] MEDS: CIPROFLOXACIN 400 MG in APPROPRIATE DILUENT 1 EA IV SCH ×2 (12:55→23:21)
[2016-11-04] MEDS: LR 1,000 ML IV SCH ×3 (12:55→23:20)
[2016-11-04 14:00] VITALS: BP 106/51
[2016-11-04] MEDS: metroNIDAZOLE 500 MG in APPROPRIATE DILUENT 1 EA IV SCH ×2 (14:00→21:04)
[2016-11-04] MEDS ORDERED: METR500T10 PO (14:23)
--- NOTE | 2016-11-04 17:28 | REP ---
RIGHT LOWER QUADRANT ABSCESS DRAIN: The procedure was performed under the direct supervision of Dr. Heath. The patient has a history of a 6 x 5.8 cm abscess in the right lower quadrant seen on a previous CT scan dated 11/03/2016. The risks and benefits of the procedure were explained to the patient and informed consent was obtained. The right lower quadrant abscess was localized using ultrasound guidance. The skin was prepped and draped in a sterile fashion. 1% Xylocaine was used a local anesthetic. Using ultrasound guidance a #10-[place] skater APDL catheter was inserted using trocar technique. 80 mL of brown thick fluid was withdrawn and sent to the lab. The abscess cavity was flushed with four 20 mL aliquots of sterile saline. 45 mL of Isovue-300 was injected into the abscess cavity to perform an abscessogram. Four last image hold fluoro spots were obtained. The images demonstrate filling of the cavity and a fistulous tract to the small bowel. The contrast was then aspirated and the cavity was flushed with one more 20 mL aliquot of sterile saline. The catheter was affixed to the skin and a sterile dressing was applied. The catheter was connected to a gravity drainage bag. These findings were relayed to Dr. Sanches at the time of the procedure. The patient tolerated the procedure well and there were no immediate complications. Reviewed by RENO Shook 11/05/2016 04:27 PEdited and Signed by Josh Heath MD 11/05/2016 07:52 P
[2016-11-04 22:00] VITALS: BP 119/58
[2016-11-05] MEDS: metroNIDAZOLE 500 MG in APPROPRIATE DILUENT 1 EA IV SCH ×3 (05:26→20:58)
[2016-11-05 06:00] VITALS: BP 114/57
[2016-11-05] MEDS ORDERED: ALBUTEROL 90 MCG/ACT 8GM HFA INHALER INH PRN (07:45)
[2016-11-05 07:59] LABS: BASO % 0.5 % (0.0-1.0); EOS # 0.1 K/mm3 (0.0-0.50); EOS % 2.1 % (0.0-3.0); LARGE UNSTAINED CELL # 0.1 K/mm3 (0.0-0.4); LARGE UNSTAINED CELL % 1.5 % (0.0-4.0); LYMPH # 0.9 K/mm3 (1.5-4.5); LYMPH % 14.9 % (24.0-44.0); MEAN CORPUSCULAR HEMOGLOBIN 28.3 pg (27.0-33.0); MEAN CORPUSCULAR HGB CONC 33.1 g/dl (32.0-36.5); MEAN CORPUSCULAR VOLUME 85.6 fl (80.0-96.0); MONO # 0.3 K/mm3 (0.0-0.8); MONO % 5.9 % (0.0-5.0); NEUTROPHILS # 4.4 K/mm3 (1.8-7.7); NEUTROPHILS % 75.1 % (36.0-66.0); PLATELET COUNT, AUTOMATED 256 k/mm3 (150-450); RED CELL DISTRIBUTION WIDTH 13.2 % (11.5-14.5); WHITE BLOOD COUNT 5.8 K/mm3 (4.0-10.0)
[2016-11-05 08:18] LABS: ANION GAP 6 MEQ/L (8-16); BLOOD UREA NITROGEN 8 MG/DL (7-18); CALCIUM LEVEL 8.7 MG/DL (8.8-10.2); CARBON DIOXIDE LEVEL 29 MEQ/L (21-32); CHLORIDE LEVEL 103 MEQ/L (98-107); CREATININE FOR GFR 0.74 MG/DL (0.55-1.02); GLOMERULAR FILTRATION RATE > 60.0 (>39); GLUCOSE, FASTING 119 MG/DL (83-110); POTASSIUM SERUM 3.1 MEQ/L (3.5-5.1); SODIUM LEVEL 138 MEQ/L (136-145)
[2016-11-05] MEDS: LEVOTHYROXINE 100MCG TABLET (0.1MG) PO SCH (09:18)
[2016-11-05] MEDS: SENOKOT S TAB PO SCH ×3 (09:18→21:00)
[2016-11-05] MEDS: OMEPRAZOLE 20 MG CAP PO SCH (09:18)
[2016-11-05] MEDS: FUROSEMIDE 20 MG TAB PO SCH (09:18)
[2016-11-05] MEDS: LR 1,000 ML IV SCH (09:18)
--- NOTE | 2016-11-05 10:34 | HPEPDOC ---
General Surgery H&P Date of Admission Nov 04, 2016 at 08:49 History and Physical CHIEF COMPLAINT: Abdominal pain, not feeling well HISTORY OF PRESENT ILLNESS: Mrs. st is being admitted directly with complaints of ongoing abdominal pain and discomfort on her lower mid abdomen since last time I saw her about weeks ago in my clinic. She was admitted back in October 03 to October 08 for an intra-abdominal abscess resulting from a perforated appendicitis. She had a percutaneous drain placed then. She improved clinically and was discharged home with the drain. The drain was removed 2 weeks ago in my clinic. Since removal of the drain patient reports gradual recurrence of her lower abdominal pain. She was also having intermittent nausea, loose bowel movements, poor appetite, feeling easily tired with light activity. She denies shortness of breath, chest pains, any fevers or chills or night sweats. She called my clinic Thursday afternoon with his complaints. I called some antibiotics for her well undergoing workup. She had a CT scan of the abdomen and pelvis done that shows recurrence of the abscess. I called her last night and spoke to her about getting admitted. She felt tired but not too sick that I decided to have her be admitted in the morning for planned drainage of the abscess back again. ALLERGIES: Please see below. HOME MEDICATIONS: Please see below. PAST MEDICAL HISTORY: Thyroid disease Gastroesophageal reflux disease Hypercholesterolemia PAST SURGICAL HISTORY: Right inguinal hernia repair Thyroidectomy tonsillectomy with adenoidectomy Thyroglossal duct cyst excision Hysterectomy Colonoscopy PERSONAL/SOCIAL HISTORY: [Denies smoking, rare alcohol use, denies recreational drug use]. REVIEW OF SYSTEMS: GENERAL: [Denies chills, fever, reports easy fatigability w some eight loss]. HEENT: [Denies blurred vision and double vision. Denies ear symptoms. Denies hoarseness]. NECK: [Denies any neck pain]. CARDIOVASCULAR: [Denies chest pain and palpitations]. MUSCULOSKELETAL: [Denies arthralgias, back pain and thrombophlebitis]. SKIN: [Denies rash]. NEUROLOGIC: [Denies headache, stroke and transient ischemic attack]. PSYCHIATRIC: Reports depression ENDOCRINE: Status post thyroidectomy on replacement therapy. HEMATOLOGY/ONCOLOGY: [Denies any bleeding or clotting disorder]. HEART: [Denies any chest pains, palpitations, paroxysmal dyspnea, orthopnea]. PULMONARY: [Denies chronic cough, dyspnea and wheezing]. GASTROINTESTINAL: See HPI. Patient reports multiple colonoscopies. Last one was about 4 years ago. Has history of colon polyps. Denies history of inflammatory bowel disease. GENITOURINARY: [Denies dysuria, frequency, hematuria and nocturia]. ENDOCRINE: [Denies polydipsia, polyphagia, polyuria, heat or cold intolerance]. INFECTIOUS: She had a 2 week antibiotic course in September for the abscess from perforated appendicitis. NUTRITION: Reports poor appetite, feeling full for the past 3 weeks. PHYSICAL EXAMINATION: VITAL SIGNS: Please see below. GENERAL APPEARANCE: [Patient seen at bedside, appears comfortable. Awake, alert , oriented]. HEENT: [Normocephalic, atraumatic. Mild pale palpebral conjunctivae. Anicteric sclerae. Lips moist]. CHEST: [No chest wall abnormalities. Normal respiratory motion/effort]. NECK: [Supple. Thyroid surgically absent. No lymphadenopathies]. LUNGS: [Lung sounds are clear to auscultation bilaterally. No wheezing appreciated]. HEART: [No chest wall abnormalities. Heart rate and rhythm are regular with no murmurs]. ABDOMEN: [Abdomen is obese, soft, slightly rounded. No hepatosplenomegaly. No umbilical or groin herniations, nondistended. Mildly tender to palpation just below the umbilicus and slightly towards the right side and suprapubic area. New percutaneous drain located over her abdomen slightly to the right. Dressings in place, clean, dry and intact. Draining fairly thin serosanguineous fluid. SKIN: [Warm, moist]. EXTREMITIES: [Extremities have no deformities. No edema identified]. NEUROLOGICAL: Equal movements of all extremities. Cranial nerves intact. ANCILLARIES: . LABORATORY DATA: Please see below. MICROBIOLOGY: Please see below. IMAGING: CT abdomen and pelvis (11/03/2016) 1. There are enlarged lymph nodes measuring up to 1.6 cm in width in the paraaortic area. 2. Diverticulosis. 3. An abscess is present in the right lower quadrant. The abscess measures 6 cm in transverse x 5.8 cm in AP dimensions and is increased in size compared to the previous study, stranding is present in the surrounding tissue consistent with edema. A small amount of free fluid is present. Degenerative change is present in the spine. Ultrasound abscess drainage Using ultrasound guidance a #10-[place] skater APDL catheter was inserted using trocar technique. 80 mL of brown thick fluid was withdrawn and sent to the lab. The abscess cavity was flushed with four 20 mL aliquots of sterile saline. 45 mL of Isovue-300 was injected into the abscess cavity to perform an abscessogram. Four last image hold fluoro spots were obtained. The images demonstrate filling of the cavity and a fistulous tract to the small bowel IMPRESSION AND PLAN: Recurrent intra-abdominal abscess Small intestine fistula History of perforated appendicitis We arrange for percutaneous drainage of the abscess packing can. I was informed by our lead technician that when they drained the abscess, they performed an abscessogram and there is a fistulous connection between the abscess cavity and small bowel. There is no connection with the appendix or the cecum. Reviewed the images myself. Symptoms to be a small remnant of the appendix that appears normal is still present. With this new information, this explains recurrence of the abscess. The inflammatory process itself could've eroded into the small intestine causing the fistula. We will monitor her here in the hospital and keep the drain. We most likely will study to drain again to see if the fistula will close by itself. Usually would try nonoperative management for about 6-8 weeks to see if the fistula will close. If the fistula does not close spontaneously after this waiting period, would most likely need surgery to resect that portion of the small bowel and at that time probably will also take the appendix. If the fistula closes, then we could remove the drain. I think a stenosis been a fairly complicated course, it is reasonable to offer her interval appendectomy. I have communicated my plans with her and she is in agreement with our plans. All her questions and concerns were also answered at this point. Vital Signs Vital Signs Date Time Temp Pulse Resp B/P (MAP) Pulse Ox O2 Delivery O2 Flow Rate FiO2 11/05/16 06:00 97.8 64 15 114/57 (76) 94 Room Air I&Os I&O- Last 24 Hours up to 6 AM 11/05/16 05:59 Intake Total 820 ml Output Total 2000 ml Balance -1180 ml Laboratory Data Labs 24H Laboratory Tests 2 11/05/16 07:46: White Blood Count 5.8, Red Blood Count 3.45L, Hemoglobin 9.8L, Hematocrit 29.5L , Mean Corpuscular Volume 85.6, Mean Corpuscular Hemoglobin 28.3, Mean Corpuscular Hemoglobin Concent 33.1, Red Cell Distribution Width 13.2, Platelet Count 256, Neutrophils (%) (Auto) 75.1H, Lymphocytes (%) (Auto) 14.9L, Monocytes (%) (Auto) 5.9H, Eosinophils (%) (Auto) 2.1, Basophils (%) (Auto) 0.5 , Neutrophils # (Auto) 4.4, Lymphocytes # (Auto) 0.9L, Monocytes # (Auto) 0.3, Eosinophils # (Auto) 0.1, Basophils # (Auto) 0.0, Large Unclassified Cells % 1.5 , Large Unclassified Cells # 0.1, Anion Gap 6L, Glomerular Filtration Rate > 60.0, Blood Urea Nitrogen 8, Creatinine 0.74, Sodium Level 138, Potassium Level 3.1L, Chloride Level 103, Carbon Dioxide Level 29, Calcium Level 8.7L CBC/BMP Laboratory Tests 11/05/16 07:46 Red Blood Count 3.45 L, Mean Corpuscular Volume 85.6, Mean Corpuscular Hemoglobin 28.3, Mean Corpuscular Hemoglobin Concent 33.1, Red Cell Distribution Width 13.2, Neutrophils (%) (Auto) 75.1 H, Lymphocytes (%) (Auto) 14.9 L, Monocytes (%) (Auto) 5.9 H, Eosinophils (%) (Auto) 2.1, Basophils (%) ( Auto) 0.5, Neutrophils # (Auto) 4.4, Lymphocytes # (Auto) 0.9 L, Monocytes # ( Auto) 0.3, Eosinophils # (Auto) 0.1, Basophils # (Auto) 0.0, Calcium Level 8.7 L Microbiology Microbiology 11/04/16 Gram Stain - Final, Resulted 11/04/16 Abscess Culture, Resulted Pending 11/04/16 Anaerobic Culture, Resulted Pending Home Medications Scheduled (Flonase Allergy Relief) 50 Mcg/Act Spr, 1 SPRAY NA DAILY, (Reported) Aspirin (Aspirin) 81 Mg Tab, 81 MG PO QHS, (Reported) Ciprofloxacin HCl (Ciprofloxacin HCl) 500 Mg Tab, 500 MG PO BID Fluticasone Propionate (Flovent Hfa 110 MCG) 120 Puff/12 Gm Aero, 2 PUFF INH BID , (Reported) Furosemide (Furosemide) 20 Mg Tab, 20 MG PO DAILY, (Reported) Levothyroxine Sodium (Levoxyl) 100 Mcg Tab, 100 MCG PO DAILY, (Reported) Metronidazole (Metronidazole) 500 Mg Tab, 500 MG PO TID, (Reported) Multivitamins *[facility] STOCKED* (Thera M Plus *[facility] STOCKED*) 1 Tab Tab, 1 TAB PO QHS , (Reported) Omeprazole (Omeprazole) 20 Mg Cap, 20 MG PO DAILY, (Reported) Ramipril (Ramipril) 2.5 Mg Cap, 2.5 MG PO QHS, (Reported) Sertraline Hcl (Sertraline HCl) 50 Mg Tab, 25 MG PO QHS, (Reported) Simvastatin (Simvastatin) 20 Mg Tab, 20 MG PO QHS, (Reported) Scheduled PRN Albuterol Sulfate (Ventolin Hfa) 200 Puff/8 Gm Aers, 2 PUFF INH Q4H PRN for SHORTNESS OF BREATH, (Reported) Allergies Coded Allergies: Codeine (Verified Adverse Reaction, Intermediate, 10/03/16) vomiting PEYMAN MOYER MD Nov 05, 2016 10:34
--- NOTE | 2016-11-05 11:42 | IPNPDOC ---
Subjective General Date/Time Seen The patient was seen on 11/05/16 at 11:34. Subject Chief Complaint/History The patient is a 75-year-old female admitted with a reason for visit of Intra Abdominal Absess. She had percutaneous drainage of her abscess yesterday. She feels improved this morning. She reports she ate lunch and dinner well, had a small breakfast. Reports multiple small loose stools. Current Medications Current Medications Current Medications Acetaminophen (Tylenol Tab) 650 mg Q4HP PRN PO MILD PAIN or TEMP > 101 Last administered on 11/04/16 21:09; Start 11/04/16 at 08:30; Stop 12/04/16 at 08:29 Acetaminophen/ Hydrocodone Bitart ([place], Anexsia 5/325) 1 tab Q4HP PRN PO MODERATE PAIN (PS 5-7); Start 11/04/16 at 08:30; Stop 11/11/16 at 08:29 Acetaminophen/ Hydrocodone Bitart ([place], Anexsia 5/325) 2 tab Q6HP PRN PO SEVERE PAIN (PS 8-10); Start 11/04/16 at 08:30; Stop 11/11/16 at 08:29 Albuterol Sulfate (Proventil, Ventolin Hfa) 2 puff Q6HP PRN INH SHORTNESS OF BREATH; Start 11/05/16 at 07:45; Stop 12/05/16 at 07:44 Aspirin (Ecotrin) 81 mg QHS PO ; Start 11/05/16 at 21:00; Stop 12/05/16 at 20:59 Ciprofloxacin 400 mg/IV Miscellaneous Supplies 200 ml @ 200 mls/hr Q12H IV ; Start 11/04/16 at 09:00; Stop 11/04/16 at 11:26; Status DC Ciprofloxacin 400 mg/IV Miscellaneous Supplies 200 ml @ 200 mls/hr Q12H IV Last administered on 11/04/16 23:21; Start 11/04/16 at 12:00; Stop 11/11/16 at 11:59 Fluticasone Propionate (Flonase 0.05% Nasal [place]) 2 spray DAILY NA ; Start at 09:00; Stop 12/05/16 at 08:59 Furosemide (Lasix) 20 mg DAILY PO Last administered on 11/05/16 09:18; Start 11/05/16 at 09:00; Stop 12/05/16 at 08:59 Home Med (Med Rec Complete!) ASDIRECTED XX ; Start 11/04/16 at 14:30; Stop at 14:30; Status DC Lactated Ringer's 1,000 ml @ 125 mls/hr Q8H IV Last administered on 11/05/16 09:18; Start 11/04/16 at 08:21; Stop 11/05/16 at 10:06; Status DC Levothyroxine Sodium (Synthroid) 100 mcg DAILY@06 PO Last administered on 09:18; Start 11/05/16 at 06:00; Stop 12/05/16 at 05:59 Metronidazole 500 mg/IV Miscellaneous Supplies 100 ml @ 100 mls/hr Q8H IV ; Start 11/04/16 at 10:00; Stop 11/04/16 at 11:27; Status DC Metronidazole 500 mg/IV Miscellaneous Supplies 100 ml @ 100 mls/hr Q8H IV Last administered on 11/05/16 05:26; Start 11/04/16 at 13:00; Stop 11/11/16 at 12:59 Morphine Sulfate (Morphine Sulfate Inj) 4 mg Q2HP PRN IV SEVERE PAIN (PS 8-10) ; Start 11/04/16 at 08:30; Stop 11/11/16 at 08:29 Omeprazole (PriLOSEC) 20 mg DAILY PO Last administered on 11/05/16 09:18; Start 11/05/16 at 09:00; Stop 12/05/16 at 08:59 Ondansetron HCl (ZOFRAN INJection) 4 mg Q6HP PRN IV NAUSEA OR VOMITING; Start 11/04/16 at 08:30; Stop 12/04/16 at 08:29 Potassium Chloride (Micro-K Extencaps) 20 meq BID PO ; Start 11/05/16 at 09:00; Stop 11/08/16 at 08:59 Ramipril (Altace) 2.5 mg DAILY PO ; Start 11/05/16 at 09:00; Stop 12/05/16 at 08 :59 Senna/Docusate Sodium (Senokot S) 1 tab BID PO ; Start 11/04/16 at 09:00; Stop 12/04/16 at 08:59 Sertraline HCl (Zoloft) 25 mg QHS PO ; Start 11/05/16 at 21:00; Stop 12/05/16 at 20:59 Sertraline HCl (Zoloft) 50 mg QHS PO ; Start 11/05/16 at 21:00; Stop 11/05/16 at 21:00; Status DC Simvastatin (Zocor) 20 mg QHS PO ; Start 11/05/16 at 21:00; Stop 12/05/16 at 20: 59 Allergies Coded Allergies: Codeine (Verified Adverse Reaction, Intermediate, 10/03/16) vomiting Objective Physical Examination Examination GENERAL APPEARANCE:Patient seen, laying in bed, awake, alert, and oriented. Comfortable, in no acute distress. SKIN: Warm and moist. HEENT: Normocephalic, atraumatic. [place] palpebral conjunctiva, anicteric sclerae. Lips and mucosa appear moist. NECK: Supple, no thyromegaly. No obvious jugular venous distention. LUNGS: Clear to auscultation bilaterally. No wheezing appreciated. HEART: No chest wall abnormalities. Regular rate and rhythm with no murmurs appreciated. ABDOMEN: Abdomen is round, soft, nondistended. No hepatosplenomegaly. Minimally tender to palpation, suprapubic area and right lower quadrant area, no guarding. Drain with slight thick purulent drainage in bag. EXTREMITIES: Extremities have no deformities. No edema identified. Vital Signs Vital Signs Date Time Temp Pulse Resp B/P (MAP) Pulse Ox O2 Delivery O2 Flow Rate FiO2 11/05/16 06:00 97.8 64 15 114/57 (76) 94 Room Air I&Os I&O- Last 24 Hours up to 6 AM 11/05/16 05:59 Intake Total 820 ml Output Total 2000 ml Balance -1180 ml Drain 50 mLs Laboratory Data Labs 24H Laboratory Tests 2 11/05/16 07:46: White Blood Count 5.8, Red Blood Count 3.45L, Hemoglobin 9.8L, Hematocrit 29.5L , Mean Corpuscular Volume 85.6, Mean Corpuscular Hemoglobin 28.3, Mean Corpuscular Hemoglobin Concent 33.1, Red Cell Distribution Width 13.2, Platelet Count 256, Neutrophils (%) (Auto) 75.1H, Lymphocytes (%) (Auto) 14.9L, Monocytes (%) (Auto) 5.9H, Eosinophils (%) (Auto) 2.1, Basophils (%) (Auto) 0.5 , Neutrophils # (Auto) 4.4, Lymphocytes # (Auto) 0.9L, Monocytes # (Auto) 0.3, Eosinophils # (Auto) 0.1, Basophils # (Auto) 0.0, Large Unclassified Cells % 1.5 , Large Unclassified Cells # 0.1, Anion Gap 6L, Glomerular Filtration Rate > 60.0, Blood Urea Nitrogen 8, Creatinine 0.74, Sodium Level 138, Potassium Level 3.1L, Chloride Level 103, Carbon Dioxide Level 29, Calcium Level 8.7L CBC/BMP Laboratory Tests 11/05/16 07:46 Red Blood Count 3.45 L, Mean Corpuscular Volume 85.6, Mean Corpuscular Hemoglobin 28.3, Mean Corpuscular Hemoglobin Concent 33.1, Red Cell Distribution Width 13.2, Neutrophils (%) (Auto) 75.1 H, Lymphocytes (%) (Auto) 14.9 L, Monocytes (%) (Auto) 5.9 H, Eosinophils (%) (Auto) 2.1, Basophils (%) ( Auto) 0.5, Neutrophils # (Auto) 4.4, Lymphocytes # (Auto) 0.9 L, Monocytes # ( Auto) 0.3, Eosinophils # (Auto) 0.1, Basophils # (Auto) 0.0, Calcium Level 8.7 L Microbiology Microbiology 11/04/16 Gram Stain - Final, Resulted 11/04/16 Abscess Culture, Resulted Pending 11/04/16 Anaerobic Culture, Resulted Pending Impression Intraabdominal abscess, recurrent s/p percutaneous drainage h/o perforated appendicitis fistula to small intestine Patient feels improved. Continue with current antibiotics for now. Await culture results. Reviewed with her our over all plan to await and see if the fistula will close spontaneously (usually 6 to 8 weeks). Will repeat an abscessogram most likely as outpatient on her follow up with me. If it doesnt close, will need surgery then. Reviewed home meds and reconciled meds DVT prophylaxis Encourage increase activity. Replete K Plan / VTE VTE Prophylaxis Ordered?: Yes PEYMAN MOYER MD Nov 05, 2016 11:38
[2016-11-05] MEDS: RAMIPRIL 2.5 MG CAP PO SCH (11:45)
[2016-11-05] MEDS: POTASSIUM CHLORIDE 10 MEQ SR TABLET PO SCH ×2 (11:46→21:01)
[2016-11-05] MEDS: CIPROFLOXACIN 400 MG in APPROPRIATE DILUENT 1 EA IV SCH ×2 (11:46→23:03)
[2016-11-05] MEDS: FLUTICASONE PROP 0.05% NASAL SPRAY 16 GM (FLONASE) SCH (11:46)
[2016-11-05 14:00] VITALS: BP 142/72
[2016-11-05] MEDS ORDERED: SERTRALINE HCL 25 MG TABLET PO SCH (21:00)
[2016-11-05] MEDS ORDERED: ASPIRIN 81 MG ENTERIC TAB PO SCH (21:00)
[2016-11-05] MEDS ORDERED: SIMVASTATIN 20 MG TAB PO SCH (21:00)
[2016-11-05] MEDS ORDERED: SERTRALINE HCL 50 MG TAB PO SCH (21:00)
[2016-11-05 22:00] VITALS: BP 150/68
[2016-11-06] MEDS: metroNIDAZOLE 500 MG in APPROPRIATE DILUENT 1 EA IV SCH ×2 (05:39→13:00)
[2016-11-06 06:00] VITALS: BP 124/66
[2016-11-06] MEDS: LEVOTHYROXINE 100MCG TABLET (0.1MG) PO SCH (06:00)
[2016-11-06 06:56] LABS: BASO % 0.3 % (0.0-1.0); EOS # 0.2 K/mm3 (0.0-0.50); LARGE UNSTAINED CELL # 0.1 K/mm3 (0.0-0.4); LARGE UNSTAINED CELL % 1.9 % (0.0-4.0); LYMPH # 1.4 K/mm3 (1.5-4.5); LYMPH % 20.9 % (24.0-44.0); MEAN CORPUSCULAR HEMOGLOBIN 28.1 pg (27.0-33.0); MEAN CORPUSCULAR HGB CONC 32.7 g/dl (32.0-36.5); MEAN CORPUSCULAR VOLUME 86.1 fl (80.0-96.0); MONO # 0.4 K/mm3 (0.0-0.8); NEUTROPHILS # 4.8 K/mm3 (1.8-7.7); NEUTROPHILS % 68.9 % (36.0-66.0); PLATELET COUNT, AUTOMATED 293 k/mm3 (150-450); RED CELL DISTRIBUTION WIDTH 13.1 % (11.5-14.5); WHITE BLOOD COUNT 6.9 K/mm3 (4.0-10.0)
[2016-11-06 07:12] LABS: ANION GAP 6 MEQ/L (8-16); BLOOD UREA NITROGEN 6 MG/DL (7-18); CALCIUM LEVEL 8.2 MG/DL (8.8-10.2); CARBON DIOXIDE LEVEL 27 MEQ/L (21-32); CHLORIDE LEVEL 105 MEQ/L (98-107); CREATININE FOR GFR 0.68 MG/DL (0.55-1.02); GLOMERULAR FILTRATION RATE > 60.0 (>39); GLUCOSE, FASTING 112 MG/DL (83-110); POTASSIUM SERUM 3.5 MEQ/L (3.5-5.1); SODIUM LEVEL 138 MEQ/L (136-145)
--- NOTE | 2016-11-06 08:36 | IPNPDOC ---
Subjective General Date/Time Seen The patient was seen on 11/06/16 at 08:31. Subject Chief Complaint/History The patient is a 75-year-old female admitted with a reason for visit of Intra Abdominal Absess. Patient reports continuing to feel mildly better. She is tolerating regular food. She is afebrile. Her pain is mildly improved though still is sore around the suprapubic area. Current Medications Current Medications Current Medications Acetaminophen (Tylenol Tab) 650 mg Q4HP PRN PO MILD PAIN or TEMP > 101 Last administered on 11/04/16 21:09; Start 11/04/16 at 08:30; Stop 12/04/16 at 08:29 Acetaminophen/ Hydrocodone Bitart ([place], Anexsia 5/325) 1 tab Q4HP PRN PO MODERATE PAIN (PS 5-7); Start 11/04/16 at 08:30; Stop 11/11/16 at 08:29 Acetaminophen/ Hydrocodone Bitart ([place], Anexsia 5/325) 2 tab Q6HP PRN PO SEVERE PAIN (PS 8-10); Start 11/04/16 at 08:30; Stop 11/11/16 at 08:29 Albuterol Sulfate (Proventil, Ventolin Hfa) 2 puff Q6HP PRN INH SHORTNESS OF BREATH; Start 11/05/16 at 07:45; Stop 12/05/16 at 07:44 Aspirin (Ecotrin) 81 mg QHS PO Last administered on 11/05/16 21:00; Start at 21:00; Stop 12/05/16 at 20:59 Ciprofloxacin 400 mg/IV Miscellaneous Supplies 200 ml @ 200 mls/hr Q12H IV ; Start 11/04/16 at 09:00; Stop 11/04/16 at 11:26; Status DC Ciprofloxacin 400 mg/IV Miscellaneous Supplies 200 ml @ 200 mls/hr Q12H IV Last administered on 11/05/16 23:03; Start 11/04/16 at 12:00; Stop 11/11/16 at 11:59 Fluticasone Propionate (Flonase 0.05% Nasal [place]) 2 spray DAILY NA Last administered on 11/05/16 11:46; Start 11/05/16 at 09:00; Stop 12/05/16 at 08:59 Furosemide (Lasix) 20 mg DAILY PO Last administered on 11/05/16 09:18; Start 11/05/16 at 09:00; Stop 12/05/16 at 08:59 Home Med (Med Rec Complete!) ASDIRECTED XX ; Start 11/04/16 at 14:30; Stop at 14:30; Status DC Lactated Ringer's 1,000 ml @ 125 mls/hr Q8H IV Last administered on 11/05/16 09:18; Start 11/04/16 at 08:21; Stop 11/05/16 at 10:06; Status DC Levothyroxine Sodium (Synthroid) 100 mcg DAILY@06 PO Last administered on 06:00; Start 11/05/16 at 06:00; Stop 12/05/16 at 05:59 Metronidazole 500 mg/IV Miscellaneous Supplies 100 ml @ 100 mls/hr Q8H IV ; Start 11/04/16 at 10:00; Stop 11/04/16 at 11:27; Status DC Metronidazole 500 mg/IV Miscellaneous Supplies 100 ml @ 100 mls/hr Q8H IV Last administered on 11/06/16 05:39; Start 11/04/16 at 13:00; Stop 11/11/16 at 12:59 Morphine Sulfate (Morphine Sulfate Inj) 4 mg Q2HP PRN IV SEVERE PAIN (PS 8-10) ; Start 11/04/16 at 08:30; Stop 11/11/16 at 08:29 Omeprazole (PriLOSEC) 20 mg DAILY PO Last administered on 11/05/16 09:18; Start 11/05/16 at 09:00; Stop 12/05/16 at 08:59 Ondansetron HCl (ZOFRAN INJection) 4 mg Q6HP PRN IV NAUSEA OR VOMITING; Start 11/04/16 at 08:30; Stop 12/04/16 at 08:29 Potassium Chloride (Micro-K Extencaps) 20 meq BID PO Last administered on 21:01; Start 11/05/16 at 09:00; Stop 11/08/16 at 08:59 Ramipril (Altace) 2.5 mg DAILY PO Last administered on 11/05/16 11:45; Start 11/05/16 at 09:00; Stop 12/05/16 at 08:59 Senna/Docusate Sodium (Senokot S) 1 tab BID PO ; Start 11/04/16 at 09:00; Stop 12/04/16 at 08:59 Sertraline HCl (Zoloft) 25 mg QHS PO Last administered on 11/05/16 21:01; Start 11/05/16 at 21:00; Stop 12/05/16 at 20:59 Sertraline HCl (Zoloft) 50 mg QHS PO ; Start 11/05/16 at 21:00; Stop 11/05/16 at 21:00; Status DC Simvastatin (Zocor) 20 mg QHS PO Last administered on 11/05/16 21:00; Start at 21:00; Stop 12/05/16 at 20:59 Allergies Coded Allergies: Codeine (Verified Adverse Reaction, Intermediate, 10/03/16) vomiting Objective Physical Examination Examination GENERAL APPEARANCE:[Patient seen, laying in bed, awake, alert, and oriented. Comfortable, in no acute distress]. SKIN: [Warm and moist]. HEENT: [Normocephalic, atraumatic. [place] palpebral conjunctiva, anicteric sclerae. Lips and mucosa appear moist]. NECK: [Supple, no thyromegaly. No obvious jugular venous distention]. LUNGS: [Clear to auscultation bilaterally. No wheezing appreciated]. HEART: [No chest wall abnormalities. Regular rate and rhythm with no murmurs appreciated]. ABDOMEN: Abdomen is , soft, . [No hepatosplenomegaly. No umbilical or groin herniations, nondistended. No noticeable rebound or guarding. No grimacing with palpation. No rebound tenderness. No masses appreciated]. EXTREMITIES: [Extremities have no deformities. No edema identified]. Vital Signs Vital Signs Date Time Temp Pulse Resp B/P (MAP) Pulse Ox O2 Delivery O2 Flow Rate FiO2 11/06/16 06:00 97.8 66 18 124/66 (85) 93 Room Air I&Os I&O- Last 24 Hours up to 6 AM 11/06/16 06:00 Intake Total 2080 ml Output Total 1950 ml Balance 130 ml Percutaneous drain 50 ML's yesterday 17 M also overnight 3 loose bowel movements recorded yesterday Laboratory Data Labs 24H CBC/BMP Laboratory Tests 11/06/16 06:37 Red Blood Count 3.55 L, Mean Corpuscular Volume 86.1, Mean Corpuscular Hemoglobin 28.1, Mean Corpuscular Hemoglobin Concent 32.7, Red Cell Distribution Width 13.1, Neutrophils (%) (Auto) 68.9 H, Lymphocytes (%) (Auto) 20.9 L, Monocytes (%) (Auto) 5.0, Eosinophils (%) (Auto) 3.0, Basophils (%) ( Auto) 0.3, Neutrophils # (Auto) 4.8, Lymphocytes # (Auto) 1.4 L, Monocytes # ( Auto) 0.4, Eosinophils # (Auto) 0.2, Basophils # (Auto) 0.0, Calcium Level 8.2 L Microbiology Microbiology 11/04/16 Gram Stain - Final, Resulted 11/04/16 Abscess Culture - Final, Resulted Streptococcus Intermedius Sensitive to ampicillin, levofloxacin, clindamycin 11/04/16 Anaerobic Culture, Resulted Pending Impression Recurrent intra-abdominal abscess resulting from perforated appendicitis internal fistula from the abscess cavity to the small intestine Patient is doing much better. With discharge patient today on Levaquin and metronidazole. I discussed again with the patient the overall plan to keep the drain and most likely starting to drain intermittently to make sure that the fistula that was seen in the previous abscessogram study would resolve prior to us removing the drain. Plan / VTE VTE Prophylaxis Ordered?: Yes PEYMAN MOYER MD Nov 06, 2016 08:36
[2016-11-06] MEDS: SENOKOT S TAB PO SCH (09:00)
[2016-11-06] MEDS ORDERED: FLUTICASONE HFA 110 MCG 12 GM INHALER (FLOVENT) INH SCH (09:00)
[2016-11-06 09:25] VITALS: BP 124/66
[2016-11-06] MEDS: RAMIPRIL 2.5 MG CAP PO SCH (09:25)
[2016-11-06] MEDS: OMEPRAZOLE 20 MG CAP PO SCH (09:25)
[2016-11-06] MEDS: FLUTICASONE PROP 0.05% NASAL SPRAY 16 GM (FLONASE) SCH (09:25)
[2016-11-06] MEDS: POTASSIUM CHLORIDE 10 MEQ SR TABLET PO SCH (09:25)
[2016-11-06] MEDS: FUROSEMIDE 20 MG TAB PO SCH (09:26)
[2016-11-06] MEDS: NORCO, ANEXSIA 5/325MG TABLET (HYDROcodone/ACETAMINOPHEN) PO PRN ×2 (09:26→17:39)
[2016-11-06] MEDS: CIPROFLOXACIN 400 MG in APPROPRIATE DILUENT 1 EA IV SCH (12:00)
[2016-11-06 14:00] VITALS: BP 133/73
[2016-11-19] MEDS ORDERED: CIPR500T89 PO (13:39)
[2016-11-19] MEDS ORDERED: FLAG500T PO (13:41)
== END 2016-11-06 17:45 | disposition home or self-care (01) | DRG 393 ==
LOC: M MS5PR 08:49
PROVIDERS: ADMIT Surgery; ATTEND Surgery
PROC: 0W9G30Z Drainage of Peritoneal Cavity with Drainage Device, Percutaneous Approach (ICD-10-PCS; principal; 2016-11-04)
DX: K63.2 Fistula of intestine (principal); K65.1 Peritoneal abscess; R59.0 Localized enlarged lymph nodes; E78.00 Pure hypercholesterolemia, unspecified; B96.6 Bacteroides fragilis [B. fragilis] as the cause of diseases classified elsewhere; B95.4 Other streptococcus as the cause of diseases classified elsewhere; E07.9 Disorder of thyroid, unspecified; K21.9 Gastro-esophageal reflux disease without esophagitis; Z90.710 Acquired absence of both cervix and uterus; Z79.82 Long term (current) use of aspirin; Z79.899 Other long term (current) drug therapy; Z88.5 Allergy status to narcotic agent

== ENCOUNTER → 2016-11-19 | Outpatient (CLI) | payer MEDICARE ==
[~2016-11-19] MED LIST changes: +ASPI1TAB15 PO; -ASPI81TA7 PO; +CIPR-249 PO; +DOXYCYCLINE HYCLATE 100 MG/10 ML VIAL As Ordered ONE; +FLAG500T PO; +HYDR-3719 PO; +ISOVUE-300 61% 50ML VIAL (Q9967) As Ordered ONE; +LIDOCAINE 2% MDV 20 ML VIAL As Ordered ONE; +METR1TAB66 PO
--- NOTE | 2016-11-19 19:05 | REPKIM ---
CLINICAL HISTORY: Patient with a history of perforated appendicitis and recurrent RLQ abscess has a 10F drainage catheter. The catheter was placed on . Abscessogram in the AP projection at that time showed opacification of the small bowel suspicious for fistulous communication. Patient presents for a follow up abscessogram possible intervention. The drainage outputs have decreased. PROCEDURE PERFORMED: Right Lower Quadrant Abscess Drainage Catheter Check and Upsize/Reposition, Sclerosis of fistula tract INTERVENTIONALIST: Dr. Juan Pablo Avila CONSENT: The risks, benefits and alternatives to the procedure were explained to the patient and informed written consent was obtained. MEDICATION: Local Lidocaine CONTRAST: 20 mL Isovue 300 EBL: 1 mL FLUORO TIME: 4.3 minutes PROCEDURE/FINDINGS: RLQ DRAINAGE CATHETER CHECK/ABSCESSOGRAM: Approximately 20mL of Isovue contrast was gently hand injected through the existing 10-Algerian RLQ pelvic drainage catheter and DSA images were obtained in the lateral projection. This showed the catheter is in a satisfactory course and position. There is less than 5 mL residual abscess cavity. There is fistulous communication identified with the adjacent appendix eventually filling the cecum. The existing 10F pigtail drainage catheter was unlocked and removed in its entirety over a guidewire. Then a 12F straight catheter was advanced with its tip positioned just outside the fistulous tract to the appendix. The drainage catheter was the secured using the Revolution device. Doxycycline 100 mg mixed in 5 mL NS; approximately 2mL was used for sclerosis of the fistula tract. The drainage catheter was then connected to a gravity bag. The patient tolerated the procedure well with no immediate complications. This procedure was performed using fluoroscopy. IMPRESSION: Sinogram/abscessogram demonstrates fistulous tract with the adjacent appendix. Catheter upsize, reposition and sclerosis of the fistula tract performed as discussed above. Plan for continued external drainage, antibiotics with follow up abscessogram in one week. Findings and discharge instructions discussed with the patient. Findings and plan also discussed via phone with Dr. Sanches. Dr. Avila was present for the entire procedure as documented in the progress notes. cc. Mitchel Sanches MD [facility] HOSPITALRolly
== END | disposition home or self-care (01) ==
LOC: M RADPRO 11:27 → M IRPRO 11:27
PROVIDERS: ATTEND Surgery
DX: K65.1 Peritoneal abscess (principal); Z87.891 Personal history of nicotine dependence; Z88.5 Allergy status to narcotic agent; Z79.899 Other long term (current) drug therapy
CPT/HCPCS: 49185; 49423; 75984; C1729; C1769; C1887; Q9967

== ENCOUNTER → 2016-11-27 | Outpatient (CLI) | payer MEDICARE ==
[~2016-11-27] MED LIST changes: -DOXYCYCLINE HYCLATE 100 MG/10 ML VIAL As Ordered ONE
--- NOTE | 2016-11-28 12:15 | REP ---
FLUOROSCOPIC GUIDANCE FOR ABSCESS CATHETER CHECK AND POSSIBLE REMOVAL: The risks and benefits of the procedure were explained to the patient and informed consent was obtained. The patient has a history of perforated appendicitis and recurrent lower quadrant abscess. A 10-Slovenian drainage catheter was inserted on 11/04/2016. The catheter was exchanged for a 12-Slovenian straight catheter on 11/19/2016. Approximately 2 mL of Isovue 300 was injected into the existing 12-Slovenian drainage catheter. Images demonstrate a very small amount of contrast exiting the catheter. There is contrast seen coming out of the tract. There is no evidence of communication with the appendix. The catheter was then removed. A sterile dressing was applied. The patient tolerated the procedure well and there were no immediate complications. After the appropriate amount of monitored convalescence the patient was discharged from the department. Reviewed by RENO Shook 11/28/2016 03:34 PEdited and Signed by Nikolas Arriola MD 11/28/2016 04:41 P
== END | disposition home or self-care (01) ==
LOC: M IRPRO 10:34
DX: Z45.89 Encounter for adjustment and management of other implanted devices (principal); K65.1 Peritoneal abscess
CPT/HCPCS: 49424; 76080; Q9967

== ENCOUNTER → 2016-12-04 | Outpatient (CLI) | payer MEDICARE ==
[~2016-12-04] MED LIST changes: -ISOVUE-300 61% 50ML VIAL (Q9967) As Ordered ONE; -LIDOCAINE 2% MDV 20 ML VIAL As Ordered ONE
--- NOTE | 2016-12-04 15:51 | REP ---
Duplex extremity venous ultrasound: Right lower extremity. History: Right leg pain. Question DVT. Findings: The deep veins are anechoic and fully compressible from the groin to the popliteal fossa in the right lower extremity. Color flow imaging is homogeneous. Spectral Doppler interrogation demonstrates intact respiratory variation in flow and normal manual augmentation of flow. There is no evidence of deep vein thrombosis. Impression: Negative right lower extremity duplex venous ultrasound. No evidence of deep vein thrombosis. Signed by Nikolas Arriola MD 12/04/2016 03:42 P
== END ==
LOC: M RAD 15:13
PROVIDERS: ATTEND Physician Assistant
DX: M79.661 Pain in right lower leg (principal)

== ENCOUNTER → 2016-12-09 | Outpatient (REF) | payer MEDICARE ==
[2016-12-09 16:41] LABS: ALBUMIN/GLOBULIN RATIO 1.29 (1.00-1.93); ALKALINE PHOSPHATASE 66 U/L (45-117); ALT/SGPT 20 U/L (12-78); ANION GAP 6 MEQ/L (8-16); AST/SGOT 18 U/L (15-37); BILIRUBIN,TOTAL 0.4 MG/DL (0.2-1.0); BLOOD UREA NITROGEN 13 MG/DL (7-18); CALCIUM LEVEL 9.1 MG/DL (8.8-10.2); CARBON DIOXIDE LEVEL 28 MEQ/L (21-32); CHLORIDE LEVEL 103 MEQ/L (98-107); CREATININE FOR GFR 0.79 MG/DL (0.55-1.02); GLOMERULAR FILTRATION RATE > 60.0 (>39); GLUCOSE, FASTING 97 MG/DL (83-110); POTASSIUM SERUM 4.2 MEQ/L (3.5-5.1); SODIUM LEVEL 137 MEQ/L (136-145); TOTAL PROTEIN 7.1 GM/DL (6.4-8.2)
[2016-12-09 17:10] LABS: BASO % 0.6 % (0.0-1.0); EOS # 0.1 K/mm3 (0.0-0.50); EOS % 2.7 % (0.0-3.0); LARGE UNSTAINED CELL # 0.1 K/mm3 (0.0-0.4); LARGE UNSTAINED CELL % 1.3 % (0.0-4.0); LYMPH # 1.6 K/mm3 (1.5-4.5); LYMPH % 29.6 % (24.0-44.0); MEAN CORPUSCULAR HEMOGLOBIN 28.3 pg (27.0-33.0); MEAN CORPUSCULAR HGB CONC 32.9 g/dl (32.0-36.5); MONO # 0.2 K/mm3 (0.0-0.8); MONO % 4.7 % (0.0-5.0); NEUTROPHILS # 3.1 K/mm3 (1.8-7.7); NEUTROPHILS % 61.1 % (36.0-66.0); PLATELET COUNT, AUTOMATED 272 k/mm3 (150-450); WHITE BLOOD COUNT 5.1 K/mm3 (4.0-10.0)
== END ==
LOC: M SFHCCLAY 09:44
PROVIDERS: ATTEND Family Medicine
DX: M79.604 Pain in right leg (principal); M79.89 Other specified soft tissue disorders
CPT/HCPCS: 80053; 82550; 85025; G0463

== ENCOUNTER → 2016-12-17 | Day surgery (SDC) | payer MEDICARE ==
[~2016-12-17] VITALS: Ht 165.1 cm; Wt 89.4 kg
[~2016-12-17] MED LIST changes: +BUPIVACAINE HCL 0.25% 30 ML VIAL As Ordered ONE; +CIPROFLOXACIN 400 MG in APPROPRIATE DILUENT 1 EA IV ONE; +GLYCOPYRROLATE INJ 0.2 MG/ML 2 ML VIAL As Ordered ONE; +KETOROLAC 30 MG/ML VIAL (J1885) IV SCH; +KETOROLAC 60 MG/2 ML VIAL (J1885) As Ordered ONE; +LIDOCAINE 1% SDV INJ 30 ML VIAL As Ordered ONE; +LIDOCAINE 2% INJ 100 MG/5 ML SDV (FOR ANES.) As Ordered ONE; +LR 1,000 ML IV SCH; +MIDAZOLAM INJ 2 MG/2 ML VIAL (J2250) As Ordered ONE; +NEOSTIGMINE 1MG/ML 5 ML SYRINGE (J2710) As Ordered ONE; +NORCO, ANEXSIA 5/325MG TABLET (HYDROcodone/ACETAMINOPHEN) PO PRN; +ONDANSETRON 4MG/2ML VIAL (J2405) As Ordered ONE; +ONDANSETRON 4MG/2ML VIAL (J2405) IV PRN; +PERCOCET 5MG/325MG TAB PO PRN; +PROPOFOL 200 MG/20 ML VIAL As Ordered ONE; +fentaNYL 100 MCG/2 ML INJECTION (J3010) As Ordered ONE; +fentaNYL 100 MCG/2 ML INJECTION (J3010) IV PRN; +metroNIDAZOLE 500 MG in APPROPRIATE DILUENT 1 EA IV ONE
[2016-12-17 16:35] VITALS: BP 158/77
--- NOTE | 2016-12-24 03:47 | ROOPDOC ---
[facility] Report Of Operation Report of Operation DATE OF PROCEDURE: 12/17/2016 PREPROCEDURE DIAGNOSES: History of perforated appendicitis with recurrent abscess POSTPROCEDURE DIAGNOSES: History of perforated appendicitis with recurrent abscess PROCEDURE: Laparoscopic lysis of adhesion, laparoscopic appendectomy SURGEON: Mitchel Sanches MD LOCAL AREA NETWORK ADMINISTRATOR: ANESTHESIA: Gen. ESTIMATED BLOOD LOSS: Approximately 10 mL. COMPLICATIONS: None. REMARKS: Scaring and adhesions over the right lower quadrant area consistent with resolved abscess. The appendix seems to have perforated at the middle with the lateral tip of the appendix adhered to a portion of small bowel and the base and proximal appendix from it.. PROCEDURE NOTE: Our patient is a 76-year-old female who presented with perforated appendicitis with an abscess that have recurred after initial percutaneous drainage. Due to this we discussed our options and patient, after full discussion have decided on having her appendix removed.. DESCRIPTION OF PROCEDURE: Patient was given a dose of ciprofloxacin IV as well as Flagyl IV for wound prophylaxis. She was brought to the operating room and placed supine on the table. General endotracheal anesthesia was started without any difficulties. Her abdomen was then prepped and draped in usual sterile fashion. After surgical timeout we began our surgery. Entry to the abdomen done through the small incision at the left upper quadrant area. A Veress needle was inserted. CO2 insufflation started to pressure 15 mmHg. Using the same incision a 5 mm Visiport was placed under direct vision of laparoscope. The incision site was inspected no injury found. The area around the umbilicus visualized and no adhesions were found. There were some scaring presumed loop of bowel adhered to the lateral abdominal wall close to the cecum. The appendix was not visualized at this point yet. A 12 mm port was placed just above the umbilicus. A third working port was placed at the left lower quadrant area. She was then placed on the lumbar incision and the right side tilted up to retract bowels away from the right lower quadrant area. The omentum as well as surrounding bowels was dissected away from the right lower quadrant area. There is a loop of bowel that was densely adhered over the right sidewall. These the Harmonic scalpel as well as laparoscopic rupal to lyse this away from the area. There is a nodular thickening densely adhered to the medial sidewall off this bowel. The cecum was dissected free of its attachments to the sidewall and rotated medially to look for the appendix which was not apparent on initial examination. We followed the tenia to identify the base of the appendix. A nodularity was noted at the area and this was dissected free which most likely was a remnant off the perforated appendix. There is about a 2-3 cm length from the base. Slightly attenuated hardened be so appendix that was adhered to the sidewall of the cecum company status. Following this there is some dense adhesions that leads me back to the same loop of bowel with the thickened nodularity which on further exam and further dissection appears to be the distal tip of the appendix. The appendix seems to have perforated at the midpoint detaching the distal from the proximal end. We started working first at the distal end and detach this from the mesentery of the small bowel as well as the medial wall of the small bowel mostly with sharp dissection using laparoscopic scissors. After this was freed from its attachments the small bowel was inspected and appears to be intact with no serosal injury. We then turned attention to the base of the appendix using the Harmonic scalpel the attachments of the mesial appendix to the cecal sidewall was likewise lysed. This was delivered into view and using a 45 mm stapler with blue load base of the appendix was divided. The staple lines appear intact with no bleeding noted. The 2 pieces of the appendix was then placed in the Endo Catch bag and retrieved through the umbilical port site. After re-insufflation inspected our surgical area, irrigated it. No apparent signs of injury both the cecum and the loop of bowel is noted. There was good hemostasis and no active bleeding noted. The abdomen was then deflated. All ports were removed. The umbilical fascial defect repaired with 0 Vicryl in a mattress fashion. All skin incisions closed with 4-0 Monocryl in subcuticular fashion. Steri-Strips and gauze dressings then used for wound coverage. Patient with symptoms promptly awakened and extubated and brought to recovery room stable MITCHEL SANCHES MD Dec 24, 2016 03:47
== END | disposition home or self-care (01) ==
LOC: M SDC 10:01
PROVIDERS: ATTEND Surgery
DX: K35.3 Acute appendicitis with localized peritonitis (principal); K65.1 Peritoneal abscess; E03.9 Hypothyroidism, unspecified; K21.9 Gastro-esophageal reflux disease without esophagitis; E78.00 Pure hypercholesterolemia, unspecified; I50.9 Heart failure, unspecified; I10 Essential (primary) hypertension; R60.0 Localized edema; R29.898 Other symptoms and signs involving the musculoskeletal system; M12.9 Arthropathy, unspecified; F32.9 Major depressive disorder, single episode, unspecified; J45.909 Unspecified asthma, uncomplicated; C44.399 Other specified malignant neoplasm of skin of other parts of face; C44.601 Unspecified malignant neoplasm of skin of unspecified upper limb, including shoulder; Z88.5 Allergy status to narcotic agent; Z88.8 Allergy status to other drugs, medicaments and biological substances; Z79.899 Other long term (current) drug therapy; Z79.82 Long term (current) use of aspirin; Z90.710 Acquired absence of both cervix and uterus; Z92.3 Personal history of irradiation; Z87.891 Personal history of nicotine dependence
CPT/HCPCS: 44180; 44970; 88304; J0744; J1885; J2250; J2405; J2710; J3010

== ENCOUNTER → 2017-03-31 | Outpatient (REF) | payer MEDICARE ==
[~2017-03-31] MED LIST changes: -BUPIVACAINE HCL 0.25% 30 ML VIAL As Ordered ONE; -CIPROFLOXACIN 400 MG in APPROPRIATE DILUENT 1 EA IV ONE; -GLYCOPYRROLATE INJ 0.2 MG/ML 2 ML VIAL As Ordered ONE; -KETOROLAC 30 MG/ML VIAL (J1885) IV SCH; -KETOROLAC 60 MG/2 ML VIAL (J1885) As Ordered ONE; -LIDOCAINE 1% SDV INJ 30 ML VIAL As Ordered ONE; -LIDOCAINE 2% INJ 100 MG/5 ML SDV (FOR ANES.) As Ordered ONE; -LR 1,000 ML IV SCH; -MIDAZOLAM INJ 2 MG/2 ML VIAL (J2250) As Ordered ONE; -NEOSTIGMINE 1MG/ML 5 ML SYRINGE (J2710) As Ordered ONE; -NORCO, ANEXSIA 5/325MG TABLET (HYDROcodone/ACETAMINOPHEN) PO PRN; -ONDANSETRON 4MG/2ML VIAL (J2405) As Ordered ONE; -ONDANSETRON 4MG/2ML VIAL (J2405) IV PRN; -PERCOCET 5MG/325MG TAB PO PRN; -PROPOFOL 200 MG/20 ML VIAL As Ordered ONE; -fentaNYL 100 MCG/2 ML INJECTION (J3010) As Ordered ONE; -fentaNYL 100 MCG/2 ML INJECTION (J3010) IV PRN; -metroNIDAZOLE 500 MG in APPROPRIATE DILUENT 1 EA IV ONE
[2017-03-31 18:58] LABS: BASO % 0.7 % (0.0-1.0); EOS # 0.1 10^3/uL (0.0-0.50); EOS % 2.5 % (0.0-3.0); IMMATURE GRANULOCYTE % 0.2 % (0-0); LYMPH # 1.6 10^3/uL (1.5-4.5); LYMPH % 27.7 % (24.0-44.0); MEAN CORPUSCULAR HEMOGLOBIN 28.4 pg (27.0-33.0); MEAN CORPUSCULAR HGB CONC 32.3 g/dl (32.0-36.5); MEAN CORPUSCULAR VOLUME 88.1 fl (80.0-96.0); MONO # 0.4 10^3/uL (0.0-0.8); MONO % 6.6 % (0.0-5.0); NEUTROPHILS # 3.5 10^3/uL (1.8-7.7); NEUTROPHILS % 62.3 % (36.0-66.0); PLATELET COUNT, AUTOMATED 236 10^3/uL (150-450); WHITE BLOOD COUNT 5.6 10^3/uL (4.0-10.0)
[2017-03-31 19:20] LABS: ALBUMIN 3.9 GM/DL (3.2-5.2); ALKALINE PHOSPHATASE 73 U/L (45-117); ALT/SGPT 25 U/L (12-78); ANION GAP 7 MEQ/L (8-16); AST/SGOT 20 U/L (7-37); BILIRUBIN,TOTAL 0.4 MG/DL (0.2-1.0); BLOOD UREA NITROGEN 12 MG/DL (7-18); CALCIUM LEVEL 9.2 MG/DL (8.8-10.2); CARBON DIOXIDE LEVEL 29 MEQ/L (21-32); CHLORIDE LEVEL 107 MEQ/L (98-107); CHOLESTEROL LEVEL 174 MG/DL (<200); CREATININE FOR GFR 0.81 MG/DL (0.55-1.02); GLOMERULAR FILTRATION RATE > 60.0 (>39); GLUCOSE, FASTING 91 MG/DL (83-110); POTASSIUM SERUM 4.1 MEQ/L (3.5-5.1); SODIUM LEVEL 143 MEQ/L (136-145); THYROXINE (T4) 11.7 UG/DL (4.5-12.0); TOTAL PROTEIN 6.9 GM/DL (6.4-8.2); TRIGLYCERIDES LEVEL 121 MG/DL (<150)
== END ==
LOC: M SFHCCLAY 09:56
PROVIDERS: ATTEND Family Medicine
DX: E89.0 Postprocedural hypothyroidism (principal); E78.2 Mixed hyperlipidemia; I10 Essential (primary) hypertension; Z23 Encounter for immunization
CPT/HCPCS: 80053; 80061; 84436; 84443; 85025; 90662; G0008; G0463

== ENCOUNTER → 2018-04-06 | Outpatient (REF) | payer MEDICARE ==
[2018-04-06 12:16] LABS: BASO # 0.1 10^3/uL (0.0-0.2); BASO % 0.9 % (0.0-1.0); EOS # 0.2 10^3/uL (0.0-0.50); EOS % 2.5 % (0.0-3.0); HEMATOCRIT 41.4 % (36.0-47.0); HEMOGLOBIN 13.3 g/dl (12.0-15.5); IMMATURE GRANULOCYTE % 0.2 % (0-3.0); LYMPH % 30.7 % (24.0-44.0); MEAN CORPUSCULAR HEMOGLOBIN 28.6 pg (27.0-33.0); MEAN CORPUSCULAR HGB CONC 32.1 g/dl (32.0-36.5); MONO # 0.4 10^3/uL (0.0-0.8); MONO % 5.9 % (0.0-5.0); NEUTROPHILS # 3.9 10^3/uL (1.8-7.7); NEUTROPHILS % 59.8 % (36.0-66.0); PLATELET COUNT, AUTOMATED 260 10^3/uL (150-450); RED BLOOD COUNT 4.65 10^6/uL (4.00-5.40); RED CELL DISTRIBUTION WIDTH 12.9 % (11.5-14.5); WHITE BLOOD COUNT 6.5 10^3/uL (4.0-10.0)
[2018-04-06 12:45] LABS: ALBUMIN/GLOBULIN RATIO 1.29 (1.00-1.93); ALKALINE PHOSPHATASE 80 U/L (45-117); ALT/SGPT 22 U/L (12-78); ANION GAP 6 MEQ/L (8-16); AST/SGOT 20 U/L (7-37); BILIRUBIN,TOTAL 0.4 MG/DL (0.2-1.0); BLOOD UREA NITROGEN 16 MG/DL (7-18); CALCIUM LEVEL 9.5 MG/DL (8.8-10.2); CARBON DIOXIDE LEVEL 30 MEQ/L (21-32); CHLORIDE LEVEL 105 MEQ/L (98-107); CHOLESTEROL LEVEL 175 MG/DL (<200); CHOLESTEROL RISK RATIO 2.822 (<5); CREATININE FOR GFR 0.83 MG/DL (0.55-1.30); GLOMERULAR FILTRATION RATE > 60.0 (>39); GLUCOSE, FASTING 95 MG/DL (70-100); HDL CHOLESTEROL 62 MG/DL (>40); LDL CHOLESTEROL 94 MG/DL (<100); NON-HDL-C 113 MG/DL; POTASSIUM SERUM 4.4 MEQ/L (3.5-5.1); SODIUM LEVEL 141 MEQ/L (136-145); TOTAL PROTEIN 7.1 GM/DL (6.4-8.2); TRIGLYCERIDES LEVEL 94 MG/DL (<150)
== END ==
LOC: M SFHCCLAY 09:08
DX: I73.00 Raynaud's syndrome without gangrene (principal); I10 Essential (primary) hypertension; E78.2 Mixed hyperlipidemia; E89.0 Postprocedural hypothyroidism
CPT/HCPCS: 84443

== ENCOUNTER → 2018-12-22 | Outpatient (CLI) | payer MEDICARE ==
[~2018-12-22] MED LIST changes: +METR-265 PO; -METR1TAB66 PO; -OMEP20CA3; -OMEP20CA3 PO; +OMEP20CA4; +OMEP20CA4 PO; +RAMI1CAP22; +RAMI1CAP22 PO; -RAMI25CA; -RAMI25CA PO; +SERT-141 PO; -SERT50TA PO
--- NOTE | 2018-12-23 10:52 | REP ---
Clinical: Bronchitis . Comparison: 10/07/2016 . Technique: PA and lateral. Findings: The mediastinum and cardiac silhouette are normal. Linear fibroatelectatic changes in the left lower lobe may represent acute/chronic change and should be correlated with physical examination and auscultation. No further consolidation, effusion, or pneumothorax. Skeletal structures intact. Impression: 1. Acute versus chronic linear fibroatelectatic changes in the left lower lobe. 2. No further acute process appreciated.
== END ==
LOC: M CLY 08:20
PROVIDERS: ATTEND Nurse Practitioner Family
DX: J40 Bronchitis, not specified as acute or chronic (principal)

== ENCOUNTER → 2019-01-12 | Outpatient (CLI) | payer MEDICARE ==
--- NOTE | 2019-01-12 12:33 | REP ---
REASON: Followup left basilar opacities. COMPARISON EXAM: 12/22/2018. FINDINGS: The superior mediastinal structures are midline. The cardiac silhouette is unremarkable in size, shape, and position. The diaphragmatic surfaces of the lungs are regular, and the costophrenic angles are clear. The pulmonary hernandez are clear. The imaged osseous structures are intact. The basilar opacities seen previously have resolved. IMPRESSION: There is no acute cardiopulmonary disease. Electronically Signed by Bang Cooper DO 01/12/2019 12:42 P
== END ==
LOC: M CLY 10:03
PROVIDERS: ATTEND Nurse Practitioner Family
DX: J18.9 Pneumonia, unspecified organism (principal)

== ENCOUNTER → 2019-04-05 | Outpatient (REF) | payer MEDICARE ==
[~2019-04-05] MED LIST changes: -SERT-155; +SERT50TA29; -SIMV20TA2; -SIMV20TA2 PO; +SIMV20TA22; +SIMV20TA22 PO
[2019-04-05 11:44] LABS: ALBUMIN 3.5 GM/DL (3.2-5.2); ALT/SGPT 21 U/L (12-78); BILIRUBIN,TOTAL 0.4 MG/DL (0.2-1.0); BLOOD UREA NITROGEN 17 MG/DL (7-18); CALCIUM LEVEL 8.9 MG/DL (8.8-10.2); CARBON DIOXIDE LEVEL 29 MEQ/L (21-32); CHLORIDE LEVEL 107 MEQ/L (98-107); CHOLESTEROL LEVEL 146 MG/DL (<200); CHOLESTEROL RISK RATIO 2.703 (<5); CREATININE FOR GFR 0.73 MG/DL (0.55-1.30); GLOMERULAR FILTRATION RATE > 60.0 (>39); GLUCOSE, FASTING 83 MG/DL (70-100); HDL CHOLESTEROL 54 MG/DL (>40); LDL CHOLESTEROL 71 MG/DL (<100); NON-HDL-C 92 MG/DL; POTASSIUM SERUM 4.7 MEQ/L (3.5-5.1); SODIUM LEVEL 142 MEQ/L (136-145); TOTAL PROTEIN 6.6 GM/DL (6.4-8.2); TRIGLYCERIDES LEVEL 104 MG/DL (<150)
== END ==
LOC: M SFHCCLAY 09:01
PROVIDERS: ATTEND Family Medicine
DX: I10 Essential (primary) hypertension (principal); E78.2 Mixed hyperlipidemia; E89.0 Postprocedural hypothyroidism
CPT/HCPCS: 80053; 80061; 84443; 90732; G0009; G0463

== ENCOUNTER → 2019-11-07 | Outpatient (REF) | payer MEDICARE ==
[~2019-11-07] MED LIST changes: +OMEP1CAP73; +OMEP1CAP73 PO; -OMEP20CA4; -OMEP20CA4 PO
== END ==
LOC: M SFHCCLAY 09:32
PROVIDERS: ATTEND Nurse Practitioner Family
DX: N89.8 Other specified noninflammatory disorders of vagina (principal)
CPT/HCPCS: 81002; 87070; G0463

== ENCOUNTER → 2019-11-29 | Outpatient (REF) | payer MEDICARE ==
[~2019-11-29] MED LIST changes: +ASPI-546 PO; -ASPI1TAB15 PO
== END ==
LOC: M SFHCCLAY 15:33
PROVIDERS: ATTEND Nurse Practitioner Family
DX: R35.0 Frequency of micturition (principal)
CPT/HCPCS: 81002; 87088; 87186; G0463

== ENCOUNTER → 2020-01-11 | Outpatient (REF) | payer MEDICARE | LOC: M SFHCCLAY 15:52 | PROVIDERS: ATTEND Physician Assistant | DX: R30.0 Dysuria (principal) | CPT/HCPCS: 81002; 87088; 87186; G0463 ==

== ENCOUNTER → 2020-04-09 | Outpatient (REF) | payer MEDICARE ==
[2020-04-09 16:28] LABS: ALBUMIN 3.9 GM/DL (3.2-5.2); ALT/SGPT 16 U/L (12-78); BILIRUBIN,TOTAL 0.4 MG/DL (0.2-1.0); BLOOD UREA NITROGEN 15 MG/DL (7-18); CALCIUM LEVEL 9.2 MG/DL (8.8-10.2); CARBON DIOXIDE LEVEL 27 MEQ/L (21-32); CHLORIDE LEVEL 107 MEQ/L (98-107); CREATININE FOR GFR 0.91 MG/DL (0.55-1.30); GLOMERULAR FILTRATION RATE > 60.0 (>39); GLUCOSE, FASTING 92 MG/DL (70-100); MAGNESIUM LEVEL 2.3 MG/DL (1.8-2.4); POTASSIUM SERUM 4.4 MEQ/L (3.5-5.1); SODIUM LEVEL 141 MEQ/L (136-145); TOTAL PROTEIN 6.8 GM/DL (6.4-8.2)
== END ==
LOC: M SFHCCLAY 13:23
PROVIDERS: ATTEND Family Medicine
DX: E89.0 Postprocedural hypothyroidism (principal); I10 Essential (primary) hypertension; K21.9 Gastro-esophageal reflux disease without esophagitis
CPT/HCPCS: 80053; 83735; 84443; G0463

== ENCOUNTER → 2020-10-08 | Outpatient (REF) | payer MEDICARE ==
[2020-10-08 17:03] LABS: ALBUMIN 3.8 GM/DL (3.2-5.2); ALT/SGPT 23 U/L (12-78); BILIRUBIN,TOTAL 0.4 MG/DL (0.2-1.0); BLOOD UREA NITROGEN 14 MG/DL (7-18); CARBON DIOXIDE LEVEL 28 MEQ/L (21-32); CHLORIDE LEVEL 107 MEQ/L (98-107); CREATININE FOR GFR 0.85 MG/DL (0.55-1.30); GLOMERULAR FILTRATION RATE > 60.0 (>39); GLUCOSE, FASTING 124 MG/DL (70-100); MAGNESIUM LEVEL 2.4 MG/DL (1.8-2.4); SODIUM LEVEL 141 MEQ/L (136-145); TOTAL PROTEIN 6.9 GM/DL (6.4-8.2)
== END ==
LOC: M SFHCCLAY 13:20
PROVIDERS: ATTEND Family Medicine
DX: K21.9 Gastro-esophageal reflux disease without esophagitis (principal); I10 Essential (primary) hypertension; E89.0 Postprocedural hypothyroidism
CPT/HCPCS: 80053; 83735; 84443; G0463

== ENCOUNTER → 2021-01-07 | Outpatient (CLI) | payer MEDICARE ==
--- NOTE | 2021-01-07 15:45 | REP ---
INDICATION: COUGH. COMPARISON: Comparison chest x-ray 12 January 2019. TECHNIQUE: Three views... FINDINGS: The lungs are hyperinflated as before. Free of focal infiltrate. There are some small granulomatous nodules in the left apex. Minimal linear fibrosis left base. Pleural angles are sharp. Heart is not enlarged. There are degenerative changes in the thoracic spine. Pulmonary vasculature is not increased. IMPRESSION: Hyperinflation. Otherwise no acute disease.. <Electronically signed by Geraldo Arriola > 01/07/21 [id number]
== END ==
LOC: M CLY 15:26
PROVIDERS: ATTEND Physician Assistant
DX: R05 Cough (principal); M51.34 Other intervertebral disc degeneration, thoracic region
CPT/HCPCS: 71046; G0463

== ENCOUNTER → 2021-04-23 | Outpatient (REF) | payer MEDICARE ==
[2021-04-23 11:27] LABS: BASO % 0.6 % (0.0-1.0); EOS # 0.2 10^3/uL (0.0-0.5); EOS % 2.9 % (0.0-3.0); HEMATOCRIT 37.8 % (36.0-47.0); LYMPH # 1.4 10^3/uL (1.5-5.0); LYMPH % 27.1 % (24.0-44.0); MEAN CORPUSCULAR HGB CONC 31.7 g/dl (32.0-36.5); MEAN CORPUSCULAR VOLUME 88.1 fl (80.0-96.0); MONO # 0.4 10^3/uL (0.0-0.8); MONO % 7.7 % (2.0-8.0); NEUTROPHILS # 3.2 10^3/uL (1.5-8.5); NEUTROPHILS % 61.5 % (36.0-66.0); PLATELET COUNT, AUTOMATED 216 10^3/uL (150-450); RED BLOOD COUNT 4.29 10^6/uL (4.00-5.40); WHITE BLOOD COUNT 5.2 10^3/uL (4.0-10.0)
[2021-04-23 11:57] LABS: HEMOGLOBIN A1c 5.5 %
[2021-04-23 12:10] LABS: ALT/SGPT 21 U/L (12-78); BILIRUBIN,TOTAL 0.5 MG/DL (0.2-1.0); BLOOD UREA NITROGEN 13 MG/DL (7-18); CALCIUM LEVEL 9.1 MG/DL (8.8-10.2); CARBON DIOXIDE LEVEL 27 MEQ/L (21-32); CHLORIDE LEVEL 107 MEQ/L (98-107); GLOMERULAR FILTRATION RATE > 60.0 (>39); GLUCOSE, FASTING 81 MG/DL (70-100); POTASSIUM SERUM 4.4 MEQ/L (3.5-5.1); SODIUM LEVEL 141 MEQ/L (136-145); TRIGLYCERIDES LEVEL 95 MG/DL (<150)
[2021-04-23 12:11] LABS: ALBUMIN 3.6 GM/DL (3.2-5.2); CHOLESTEROL LEVEL 173 MG/DL (<200); CHOLESTEROL RISK RATIO 3.089 (<5); HDL CHOLESTEROL 56 MG/DL (>40); LDL CHOLESTEROL 98 MG/DL (<100); NON-HDL-C 117 MG/DL; TOTAL PROTEIN 6.6 GM/DL (6.4-8.2)
== END ==
LOC: M SFHCCLAY 09:07
PROVIDERS: ATTEND Family Medicine
DX: E89.0 Postprocedural hypothyroidism (principal); I10 Essential (primary) hypertension; E78.2 Mixed hyperlipidemia; R73.01 Impaired fasting glucose
CPT/HCPCS: 80053; 80061; 83036; 84443; 85025; G0463

== ENCOUNTER → 2021-07-12 | Outpatient (CLI) | payer MEDICARE | LOC: M CLY 07:58 | PROVIDERS: ATTEND Family Medicine | DX: M54.41 Lumbago with sciatica, right side (principal); M51.36 Other intervertebral disc degeneration, lumbar region; M51.37 Other intervertebral disc degeneration, lumbosacral region ==

== ENCOUNTER → 2021-10-22 | Outpatient (REF) | payer MEDICARE ==
[2021-10-22 11:43] LABS: ALBUMIN 3.7 GM/DL (3.2-5.2); ALT/SGPT 18 U/L (12-78); BILIRUBIN,TOTAL 0.4 MG/DL (0.2-1.0); BLOOD UREA NITROGEN 14 MG/DL (7-18); CARBON DIOXIDE LEVEL 29 MEQ/L (21-32); CHLORIDE LEVEL 108 MEQ/L (98-107); CREATININE FOR GFR 0.84 MG/DL (0.55-1.30); GLOMERULAR FILTRATION RATE > 60.0 (>39); GLUCOSE, FASTING 86 MG/DL (70-100); MAGNESIUM LEVEL 2.2 MG/DL (1.8-2.4); POTASSIUM SERUM 4.2 MEQ/L (3.5-5.1); SODIUM LEVEL 140 MEQ/L (136-145); TOTAL PROTEIN 6.3 GM/DL (6.4-8.2)
== END ==
LOC: M SFHCCLAY 09:05
PROVIDERS: ATTEND Family Medicine
DX: K21.9 Gastro-esophageal reflux disease without esophagitis (principal); I10 Essential (primary) hypertension

== ENCOUNTER → 2021-12-13 | Outpatient (REF) | payer MEDICARE ==
[2021-12-13 12:09] LABS: APPEARANCE, URINE HAZY (CLEAR); BACTERIA, URINE AUTO NEGATIVE (NEGATIVE); BILIRUBIN, URINE AUTO NEGATIVE (NEGATIVE); BLOOD, URINE BLOOD NEGATIVE (NEGATIVE); COLOR, URINE YELLOW (YELLOW); GLUCOSE, URINE (UA) AUTO NEGATIVE (NEGATIVE); KETONE, URINE AUTO NEGATIVE (NEGATIVE); LEUKOCYTE ESTERASE, URINE AUTO 3+ (NEGATIVE); MUCUS, URINE SMALL (NEGATIVE); NITRITE, URINE AUTO NEGATIVE (NEGATIVE); PROTEIN, URINE AUTO NEGATIVE (NEGATIVE); RBC, URINE AUTO 0 /HPF (0-3); SPECIFIC GRAVITY URINE AUTO 1.015 (1.002-1.035); SQUAMOUS EPITHELIAL CELL UR AU 2 /HPF (0-6); UROBILINOGEN, URINE AUTO 0.2 mg/dL (0.0-2.0); WBC, URINE AUTO 5 /HPF (0-3)
== END ==
LOC: M SFHCCLAY 08:58
PROVIDERS: ATTEND Family Medicine
DX: R35.0 Frequency of micturition (principal)

== ENCOUNTER → 2022-01-31 | Outpatient (REF) | payer MEDICARE | LOC: M SFHCDERM 14:08 | PROVIDERS: ATTEND Nurse Practitioner Family | DX: L57.0 Actinic keratosis (principal) ==

== ENCOUNTER → 2022-04-21 | Outpatient (REF) | payer MEDICARE ==
[2022-04-21 17:30] LABS: BASO % 0.4 % (0.0-1.0); EOS # 0.1 10^3/uL (0.0-0.5); EOS % 1.2 % (0.0-3.0); HEMOGLOBIN 11.9 g/dl (12.0-15.5); LYMPH # 1.3 10^3/uL (1.5-5.0); LYMPH % 17.2 % (24.0-44.0); MEAN CORPUSCULAR HGB CONC 31.3 g/dl (32.0-36.5); MEAN CORPUSCULAR VOLUME 89.4 fl (80.0-96.0); MONO # 0.5 10^3/uL (0.0-0.8); MONO % 6.6 % (2.0-8.0); NEUTROPHILS # 5.6 10^3/uL (1.5-8.5); NEUTROPHILS % 73.5 % (36.0-66.0); PLATELET COUNT, AUTOMATED 239 10^3/uL (150-450); RED BLOOD COUNT 4.25 10^6/uL (4.00-5.40); WHITE BLOOD COUNT 7.6 10^3/uL (4.0-10.0)
[2022-04-21 17:59] LABS: CHLORIDE LEVEL 105 MMOL/L (98-107); POTASSIUM SERUM 4.6 MMOL/L (3.5-5.1); SODIUM LEVEL 142 MMOL/L (136-145)
[2022-04-21 18:02] LABS: ALBUMIN 3.8 G/DL (3.2-5.2); CARBON DIOXIDE LEVEL 27 MMOL/L (20-31)
[2022-04-21 18:06] LABS: BILIRUBIN,TOTAL 0.4 MG/DL (0.3-1.2); MAGNESIUM LEVEL 1.9 MG/DL (1.8-2.4)
[2022-04-21 18:07] LABS: BLOOD UREA NITROGEN 19 MG/DL (9-23); CALCIUM LEVEL 9.3 MG/DL (8.3-10.6); GLUCOSE, FASTING 94 MG/DL (74-106); TRIGLYCERIDES LEVEL 91 MG/DL (<150)
[2022-04-21 18:08] LABS: ALKALINE PHOSPHATASE 69 U/L (46-116)
[2022-04-21 18:09] LABS: ALT/SGPT 15 U/L (7.0-40); AST/SGOT 22 U/L (<34); CHOLESTEROL LEVEL 137 MG/DL (<200); CHOLESTEROL RISK RATIO 2.61 (<5); CREATININE FOR GFR 0.78 MG/DL (0.55-1.30); GLOMERULAR FILTRATION RATE > 60.0 (>39); HDL CHOLESTEROL 52.4 MG/DL (>40); LDL CHOLESTEROL 66.4 MG/DL (<100); NON-HDL-C 85 MG/DL; TOTAL PROTEIN 6.3 G/DL (5.7-8.2)
[2022-04-21 19:57] LABS: HEMOGLOBIN A1c 5.2 % (4.0-6.0)
== END ==
LOC: M SFHCCLAY 11:43
PROVIDERS: ATTEND Family Medicine
DX: I10 Essential (primary) hypertension (principal); E78.2 Mixed hyperlipidemia; K21.9 Gastro-esophageal reflux disease without esophagitis; R73.01 Impaired fasting glucose

== ENCOUNTER → 2022-05-20 | Outpatient (REF) | payer MEDICARE | LOC: M SFHCCLAY 11:39 | PROVIDERS: ATTEND Family Medicine | DX: B34.9 Viral infection, unspecified (principal) ==

== ENCOUNTER → 2022-06-25 | Outpatient (REF) | payer MEDICARE ==
[2022-06-25 17:53] LABS: BASO % 0.5 % (0.0-1.0); EOS % 0.9 % (0.0-3.0); HEMATOCRIT 36.8 % (36.0-47.0); HEMOGLOBIN 11.3 g/dl (12.0-15.5); LYMPH # 1.2 10^3/uL (1.5-5.0); LYMPH % 26.7 % (24.0-44.0); MEAN CORPUSCULAR HEMOGLOBIN 27.6 pg (27.0-33.0); MEAN CORPUSCULAR HGB CONC 30.7 g/dl (32.0-36.5); MONO # 0.3 10^3/uL (0.0-0.8); MONO % 6.6 % (2.0-8.0); NEUTROPHILS # 2.9 10^3/uL (1.5-8.5); NEUTROPHILS % 65.1 % (36.0-66.0); PLATELET COUNT, AUTOMATED 223 10^3/uL (150-450); RED BLOOD COUNT 4.09 10^6/uL (4.00-5.40); WHITE BLOOD COUNT 4.4 10^3/uL (4.0-10.0)
[2022-06-25 18:17] LABS: ALBUMIN 3.8 G/DL (3.2-5.2); ALKALINE PHOSPHATASE 88 U/L (46-116); ALT/SGPT 20 U/L (7.0-40); AST/SGOT 30 U/L (<34); BILIRUBIN,TOTAL 0.3 MG/DL (0.3-1.2); BLOOD UREA NITROGEN 14 MG/DL (9-23); CALCIUM LEVEL 8.8 MG/DL (8.3-10.6); CARBON DIOXIDE LEVEL 26 MMOL/L (20-31); CHLORIDE LEVEL 104 MMOL/L (98-107); CREATININE FOR GFR 0.76 MG/DL (0.55-1.30); GLOMERULAR FILTRATION RATE > 60.0 (>39); GLUCOSE, FASTING 82 MG/DL (74-106); POTASSIUM SERUM 4.3 MMOL/L (3.5-5.1); SODIUM LEVEL 140 MMOL/L (136-145); TOTAL PROTEIN 6.5 G/DL (5.7-8.2)
[2022-06-25 18:25] LABS: THYROID STIMULATING HORMONE 4.064 uIU/ML (0.55-4.78)
[2022-06-25 18:26] LABS: FREE T4 1.24 NG/DL (0.89-1.76)
== END ==
LOC: M SFHCCLAY 13:44
PROVIDERS: ATTEND Family Medicine
DX: J45.20 Mild intermittent asthma, uncomplicated (principal); I11.0 Hypertensive heart disease with heart failure; I50.9 Heart failure, unspecified

== ENCOUNTER → 2022-06-25 | Outpatient (CLI) | payer MEDICARE | LOC: M CLY 14:02 | PROVIDERS: ATTEND Family Medicine | DX: J45.20 Mild intermittent asthma, uncomplicated (principal); M48.14 Ankylosing hyperostosis [Forestier], thoracic region; I70.0 Atherosclerosis of aorta; J98.4 Other disorders of lung; R91.8 Other nonspecific abnormal finding of lung field ==

== ENCOUNTER → 2022-06-30 | Outpatient (CLI) | payer MEDICARE | LOC: M CLY 14:37 | PROVIDERS: ATTEND Family Medicine | DX: J18.9 Pneumonia, unspecified organism (principal); J44.0 Chronic obstructive pulmonary disease with (acute) lower respiratory infection ==

== ENCOUNTER → 2022-07-09 | Outpatient (CLI) | payer MEDICARE | LOC: M CLY 09:23 | PROVIDERS: ATTEND Family Medicine | DX: J18.9 Pneumonia, unspecified organism (principal) ==

== ENCOUNTER → 2022-07-22 | Outpatient (CLI) | payer MEDICARE | LOC: M RAD 15:20 | PROVIDERS: ATTEND Family Medicine | DX: R91.8 Other nonspecific abnormal finding of lung field (principal); N63.11 Unspecified lump in the right breast, upper outer quadrant; R19.09 Other intra-abdominal and pelvic swelling, mass and lump ==

== ENCOUNTER → 2022-07-31 | Outpatient (CLI) | payer MEDICARE | LOC: M WHC 07:04 | PROVIDERS: ATTEND Family Medicine | DX: N63.11 Unspecified lump in the right breast, upper outer quadrant (principal); I88.0 Nonspecific mesenteric lymphadenitis; R91.8 Other nonspecific abnormal finding of lung field | CPT/HCPCS: 74178; 77065; G0279 ==

== ENCOUNTER → 2022-07-31 | Outpatient (CLI) | payer MEDICARE ==
[~2022-07-31] MED LIST changes: +GASTROGRAFIN SOLUTION 30ML ONE; +ISOVUE-370 76% 100ML VIAL ONE
== END ==
LOC: M PLAIMG 07:08
PROVIDERS: ATTEND Family Medicine
DX: N63.11 Unspecified lump in the right breast, upper outer quadrant (principal); R59.0 Localized enlarged lymph nodes; I88.0 Nonspecific mesenteric lymphadenitis

== ENCOUNTER → 2022-08-13 | Outpatient (CLI) | payer MEDICARE ==
[~2022-08-13] MED LIST changes: -GASTROGRAFIN SOLUTION 30ML ONE; -ISOVUE-370 76% 100ML VIAL ONE
== END ==
LOC: M PLARAD 07:37
PROVIDERS: ATTEND Family Medicine
DX: R91.8 Other nonspecific abnormal finding of lung field (principal); N63.11 Unspecified lump in the right breast, upper outer quadrant; R59.0 Localized enlarged lymph nodes
CPT/HCPCS: 78815; A9552

== ENCOUNTER → 2022-10-27 | Outpatient (CLI) | payer MEDICARE ==
[~2022-10-27] MED LIST changes: +ALBU8.5H INH; +ALL10TAB2 PO; +AMMO12LO TOP; +CLOT1CRE71 TOP; +FLUC150T9 PO; +FLUT12AE2 IH; +GNP250TA9 PO; +LIDOCAINE 1% MDV 20ML VIAL As Ordered ONE; +LOSA25TA13; +OMEP40CA4 PO; +XYZOL PO
[2022-10-27 08:08] LABS: HEMATOCRIT 38.7 % (36.0-47.0); HEMOGLOBIN 12.4 g/dl (12.0-15.5); MEAN CORPUSCULAR HEMOGLOBIN 28.4 pg (27.0-33.0); MEAN CORPUSCULAR VOLUME 88.6 fl (80.0-96.0); PLATELET COUNT, AUTOMATED 217 10^3/uL (150-450); RED BLOOD COUNT 4.37 10^6/uL (4.00-5.40); WHITE BLOOD COUNT 4.7 10^3/uL (4.0-10.0)
[2022-10-27 08:19] LABS: INR 0.91; PROTHROMBIN TIME 12.4 SECONDS (12.5-14.5)
[2022-10-27 08:20] LABS: PARTIAL THROMBOPLASTIN TIME 30.3 SECONDS (24.8-34.2)
[2022-10-27 11:04] VITALS: BP 124/59
== END ==
LOC: M IRPRO 07:29
PROVIDERS: ATTEND Internal Medicine Hematology & Oncology
DX: K76.89 Other specified diseases of liver (principal)

== ENCOUNTER → 2023-01-28 | Outpatient (REF) | payer MEDICARE ==
[~2023-01-28] MED LIST changes: +FLUT12AE6 INH; +FURO40TA2 PO; -LIDOCAINE 1% MDV 20ML VIAL As Ordered ONE
[2023-01-28 18:15] LABS: BASO % 0.5 % (0.0-1.0); EOS # 0.1 10^3/uL (0.0-0.5); EOS % 2.2 % (0.0-3.0); HEMOGLOBIN 11.5 g/dl (12.0-15.5); LYMPH # 1.3 10^3/uL (1.5-5.0); LYMPH % 20.3 % (24.0-44.0); MEAN CORPUSCULAR HEMOGLOBIN 28.3 pg (27.0-33.0); MEAN CORPUSCULAR HGB CONC 31.9 g/dl (32.0-36.5); MEAN CORPUSCULAR VOLUME 88.7 fl (80.0-96.0); MONO # 0.4 10^3/uL (0.0-0.8); MONO % 5.8 % (2.0-8.0); NEUTROPHILS # 4.6 10^3/uL (1.5-8.5); NEUTROPHILS % 70.9 % (36.0-66.0); PLATELET COUNT, AUTOMATED 221 10^3/uL (150-450); RED BLOOD COUNT 4.06 10^6/uL (4.00-5.40); WHITE BLOOD COUNT 6.5 10^3/uL (4.0-10.0)
[2023-01-28 18:40] LABS: LDH LACTATE DEHYDROGENASE 226 U/L (120-246)
[2023-01-28 18:43] LABS: ALBUMIN 3.8 G/DL (3.2-5.2); ALKALINE PHOSPHATASE 75 U/L (46-116); ALT/SGPT 19 U/L (7.0-40); AST/SGOT 23 U/L (<34); BILIRUBIN,TOTAL 0.5 MG/DL (0.3-1.2); BLOOD UREA NITROGEN 17 MG/DL (9-23); CALCIUM LEVEL 8.8 MG/DL (8.3-10.6); CARBON DIOXIDE LEVEL 29 MMOL/L (20-31); CHLORIDE LEVEL 104 MMOL/L (98-107); CREATININE FOR GFR 0.91 MG/DL (0.55-1.30); GLOMERULAR FILTRATION RATE > 60.0 (>32); GLUCOSE, FASTING 115 MG/DL (74-106); POTASSIUM SERUM 3.6 MMOL/L (3.5-5.1); SODIUM LEVEL 140 MMOL/L (136-145); TOTAL PROTEIN 6.3 G/DL (5.7-8.2)
== END ==
LOC: M LABDRAWC 17:45
PROVIDERS: ATTEND Internal Medicine Hematology & Oncology
DX: R93.89 Abnormal findings on diagnostic imaging of other specified body structures (principal)

== ENCOUNTER → 2023-01-30 | Outpatient (CLI) | payer MEDICARE ==
[~2023-01-30] MED LIST changes: +GASTROGRAFIN SOLUTION 30ML As Ordered ONE; +ISOVUE-370 76% 100ML VIAL As Ordered ONE
== END ==
LOC: M RAD 11:40
PROVIDERS: ATTEND Internal Medicine Hematology & Oncology
DX: C85.90 Non-Hodgkin lymphoma, unspecified, unspecified site (principal)
CPT/HCPCS: 71260; 74177; Q9963; Q9967

== ENCOUNTER → 2023-03-19 | Outpatient (CLI) | payer MEDICARE ==
[~2023-03-19] MED LIST changes: -GASTROGRAFIN SOLUTION 30ML As Ordered ONE; -ISOVUE-370 76% 100ML VIAL As Ordered ONE; +LEVOTAB10 PO; +LIDOCAINE 1% MDV 20ML VIAL As Ordered ONE; -LOSA25TA13; +LOSA25TA13 PO
[2023-03-19 08:20] VITALS: TEMP 96.7
[2023-03-19 08:29] LABS: BASO % 0.9 % (0.0-1.0); EOS # 0.1 10^3/uL (0.0-0.5); HEMATOCRIT 36.8 % (36.0-47.0); LYMPH # 1.4 10^3/uL (1.5-5.0); LYMPH % 29.6 % (24.0-44.0); MEAN CORPUSCULAR HGB CONC 32.6 g/dl (32.0-36.5); MEAN CORPUSCULAR VOLUME 88.9 fl (80.0-96.0); MONO # 0.3 10^3/uL (0.0-0.8); MONO % 6.8 % (2.0-8.0); NEUTROPHILS # 2.8 10^3/uL (1.5-8.5); NEUTROPHILS % 59.5 % (36.0-66.0); PLATELET COUNT, AUTOMATED 190 10^3/uL (150-450); RED BLOOD COUNT 4.14 10^6/uL (4.00-5.40); WHITE BLOOD COUNT 4.7 10^3/uL (4.0-10.0)
[2023-03-19 09:10] VITALS: BP 164/74; O2SAT 100
== END ==
LOC: M IRPRO 07:59
PROVIDERS: ATTEND Internal Medicine Medical Oncology
DX: C83.30 Diffuse large B-cell lymphoma, unspecified site (principal)

== ENCOUNTER → 2023-10-12 | Outpatient (REF) | payer MEDICARE ==
[~2023-10-12] MED LIST changes: +B-10TAB2 PO; +ECOT81TA5 PO; -LIDOCAINE 1% MDV 20ML VIAL As Ordered ONE; +LOTI10DR; +ONDA8TAB8 PO; +PROC10TA5 PO; -RAMI1CAP22; -RAMI1CAP22 PO; +RAMI2.5C42; +RAMI2.5C42 PO; +REVL10CA2 PO; +REVL15CA PO
[2023-10-12 18:21] LABS: HEMOGLOBIN A1c 5.1 % (4.0-6.0)
[2023-10-12 18:25] LABS: FREE T4 1.51 NG/DL (0.89-1.76); THYROID STIMULATING HORMONE 0.725 uIU/ML (0.55-4.78)
[2023-10-12 18:27] LABS: TOTAL T3 86.2 NG/DL (60.0-181.0)
== END ==
LOC: M SFHCCLAY 14:03
PROVIDERS: ATTEND Family Medicine
DX: I10 Essential (primary) hypertension (principal); E89.0 Postprocedural hypothyroidism; G62.9 Polyneuropathy, unspecified; R73.01 Impaired fasting glucose; K21.9 Gastro-esophageal reflux disease without esophagitis

== ENCOUNTER → 2023-12-17 | Outpatient (REF) | payer MEDICARE ==
[~2023-12-17] MED LIST changes: +ONDA-284 PO; -ONDA8TAB8 PO; +POTA8CAP10 PO; +XIID5DRO OP
[2023-12-17 19:25] LABS: BASO % 0.1 % (0.0-1.0); EOS # 0.3 10^3/uL (0.0-0.5); EOS % 4.1 % (0.0-3.0); HEMATOCRIT 35.2 % (36.0-47.0); HEMOGLOBIN 11.1 g/dl (12.0-15.5); LYMPH # 1.4 10^3/uL (1.5-5.0); LYMPH % 20.4 % (24.0-44.0); MEAN CORPUSCULAR HEMOGLOBIN 27.7 pg (27.0-33.0); MEAN CORPUSCULAR HGB CONC 31.5 g/dl (32.0-36.5); MEAN CORPUSCULAR VOLUME 87.8 fl (80.0-96.0); MONO # 0.5 10^3/uL (0.0-0.8); MONO % 7.2 % (2.0-8.0); NEUTROPHILS # 4.6 10^3/uL (1.5-8.5); PLATELET COUNT, AUTOMATED 301 10^3/uL (150-450); RED BLOOD COUNT 4.01 10^6/uL (4.00-5.40); WHITE BLOOD COUNT 6.8 10^3/uL (4.0-10.0)
[2023-12-17 19:54] LABS: ALBUMIN 2.9 G/DL (3.2-5.2); ALKALINE PHOSPHATASE 85 U/L (46-116); ALT/SGPT 19 U/L (7.0-40); AST/SGOT < 8 U/L (<34); BILIRUBIN,TOTAL 0.3 MG/DL (0.3-1.2); BLOOD UREA NITROGEN 16 MG/DL (9-23); CALCIUM LEVEL 8.4 MG/DL (8.3-10.6); CARBON DIOXIDE LEVEL 32 MMOL/L (20-31); CHLORIDE LEVEL 106 MMOL/L (98-107); CREATININE FOR GFR 0.76 MG/DL (0.55-1.30); GLOMERULAR FILTRATION RATE > 60.0 (>32); GLUCOSE, FASTING 89 MG/DL (74-106); MAGNESIUM LEVEL 2.1 MG/DL (1.8-2.4); POTASSIUM SERUM 3.9 MMOL/L (3.5-5.1); SODIUM LEVEL 140 MMOL/L (136-145); TOTAL PROTEIN 5.5 G/DL (5.7-8.2)
== END ==
LOC: M SFHCCLAY 13:48
PROVIDERS: ATTEND Physician Assistant
DX: E83.42 Hypomagnesemia (principal)

== ENCOUNTER → 2023-12-31 | Outpatient (REF) | payer MEDICARE ==
[2023-12-31 18:15] LABS: BASO # 0.1 10^3/uL (0.0-0.2); BASO % 1.4 % (0.0-1.0); EOS # 0.2 10^3/uL (0.0-0.5); EOS % 3.9 % (0.0-3.0); HEMATOCRIT 33.3 % (36.0-47.0); HEMOGLOBIN 10.8 g/dl (12.0-15.5); LYMPH # 1.1 10^3/uL (1.5-5.0); LYMPH % 21.6 % (24.0-44.0); MEAN CORPUSCULAR HEMOGLOBIN 28.7 pg (27.0-33.0); MEAN CORPUSCULAR HGB CONC 32.4 g/dl (32.0-36.5); MEAN CORPUSCULAR VOLUME 88.6 fl (80.0-96.0); MONO # 0.5 10^3/uL (0.0-0.8); MONO % 9.5 % (2.0-8.0); NEUTROPHILS # 3.1 10^3/uL (1.5-8.5); NEUTROPHILS % 63.4 % (36.0-66.0); PLATELET COUNT, AUTOMATED 209 10^3/uL (150-450); RED BLOOD COUNT 3.76 10^6/uL (4.00-5.40); WHITE BLOOD COUNT 4.9 10^3/uL (4.0-10.0)
[2023-12-31 18:44] LABS: LDH LACTATE DEHYDROGENASE 199 U/L (120-246)
[2023-12-31 18:45] LABS: ALBUMIN 3.2 G/DL (3.2-5.2); ALKALINE PHOSPHATASE 88 U/L (46-116); ALT/SGPT 17 U/L (7.0-40); AST/SGOT 15 U/L (<34); BILIRUBIN,TOTAL 0.5 MG/DL (0.3-1.2); BLOOD UREA NITROGEN 14 MG/DL (9-23); CALCIUM LEVEL 8.5 MG/DL (8.3-10.6); CARBON DIOXIDE LEVEL 30 MMOL/L (20-31); CHLORIDE LEVEL 107 MMOL/L (98-107); CREATININE FOR GFR 0.84 MG/DL (0.55-1.30); GLOMERULAR FILTRATION RATE > 60.0 (>32); GLUCOSE, FASTING 92 MG/DL (74-106); SODIUM LEVEL 142 MMOL/L (136-145); TOTAL PROTEIN 5.8 G/DL (5.7-8.2)
== END ==
LOC: M LABDRAWC 17:37
PROVIDERS: ATTEND Internal Medicine Medical Oncology
DX: C85.90 Non-Hodgkin lymphoma, unspecified, unspecified site (principal)

== ENCOUNTER → 2024-01-01 | Outpatient (REF) | payer MEDICARE | LOC: M LABSMT 11:54 | PROVIDERS: ATTEND Urology | DX: N36.8 Other specified disorders of urethra (principal) ==

== ENCOUNTER → 2024-02-17 | Outpatient (REF) | payer MEDICARE ==
[~2024-02-17] MED LIST changes: +ACYC1TAB PO
[2024-02-17 18:50] LABS: HEMATOCRIT 35.8 % (36.0-47.0); HEMOGLOBIN 11.8 g/dl (12.0-15.5); MEAN CORPUSCULAR HEMOGLOBIN 29.5 pg (27.0-33.0); MEAN CORPUSCULAR VOLUME 89.5 fl (80.0-96.0); PLATELET COUNT, AUTOMATED 186 10^3/uL (150-450); WHITE BLOOD COUNT 3.3 10^3/uL (4.0-10.0)
[2024-02-17 19:19] LABS: ALBUMIN 3.7 G/DL (3.2-5.2); ALKALINE PHOSPHATASE 83 U/L (46-116); ALT/SGPT 21 U/L (7.0-40); AST/SGOT 22 U/L (<34); BILIRUBIN,TOTAL 0.9 MG/DL (0.3-1.2); BLOOD UREA NITROGEN 12 MG/DL (9-23); CALCIUM LEVEL 9.2 MG/DL (8.3-10.6); CARBON DIOXIDE LEVEL 32 MMOL/L (20-31); CHLORIDE LEVEL 105 MMOL/L (98-107); CREATININE FOR GFR 0.87 MG/DL (0.55-1.30); GLOMERULAR FILTRATION RATE > 60.0 (>32); GLUCOSE, FASTING 92 MG/DL (74-106); POTASSIUM SERUM 3.6 MMOL/L (3.5-5.1); SODIUM LEVEL 140 MMOL/L (136-145)
== END ==
LOC: M LABDRAWC 16:43
PROVIDERS: ATTEND Urology
DX: N36.8 Other specified disorders of urethra (principal)

== ENCOUNTER → 2024-02-17 | Outpatient (REF) | payer MEDICARE ==
[2024-02-17 18:50] LABS: BASO # 0.1 10^3/uL (0.0-0.2); BASO % 1.4 % (0.0-1.0); EOS # 0.5 10^3/uL (0.0-0.5); EOS % 13.7 % (0.0-3.0); HEMATOCRIT 35.9 % (36.0-47.0); HEMOGLOBIN 11.9 g/dl (12.0-15.5); LYMPH # 0.9 10^3/uL (1.5-5.0); LYMPH % 25.2 % (24.0-44.0); MEAN CORPUSCULAR HEMOGLOBIN 29.7 pg (27.0-33.0); MEAN CORPUSCULAR HGB CONC 33.1 g/dl (32.0-36.5); MEAN CORPUSCULAR VOLUME 89.5 fl (80.0-96.0); MONO # 0.3 10^3/uL (0.0-0.8); NEUTROPHILS # 1.8 10^3/uL (1.5-8.5); NEUTROPHILS % 50.4 % (36.0-66.0); PLATELET COUNT, AUTOMATED 184 10^3/uL (150-450); RED BLOOD COUNT 4.01 10^6/uL (4.00-5.40); WHITE BLOOD COUNT 3.6 10^3/uL (4.0-10.0)
[2024-02-17 19:17] LABS: ALBUMIN 3.7 G/DL (3.2-5.2); ALKALINE PHOSPHATASE 83 U/L (46-116); ALT/SGPT 20 U/L (7.0-40); AST/SGOT 22 U/L (<34); BILIRUBIN,TOTAL 0.9 MG/DL (0.3-1.2); BLOOD UREA NITROGEN 11 MG/DL (9-23); CALCIUM LEVEL 9.2 MG/DL (8.3-10.6); CARBON DIOXIDE LEVEL 31 MMOL/L (20-31); CHLORIDE LEVEL 106 MMOL/L (98-107); CREATININE FOR GFR 0.87 MG/DL (0.55-1.30); GLOMERULAR FILTRATION RATE > 60.0 (>32); GLUCOSE, FASTING 93 MG/DL (74-106); IRON (FE) 66 UG/DL (50-170); PERCENT SATURATION 19.9 % (13.2-45.0); POTASSIUM SERUM 3.7 MMOL/L (3.5-5.1); SODIUM LEVEL 142 MMOL/L (136-145); TOTAL IRON BINDING CAPACITY 331 UG/DL (250-425)
== END ==
LOC: M LABDRAWC 16:41
PROVIDERS: ATTEND Internal Medicine Medical Oncology
DX: C85.90 Non-Hodgkin lymphoma, unspecified, unspecified site (principal)

== ENCOUNTER → 2024-02-17 | Outpatient (CLI) | payer MEDICARE | LOC: M CLY 10:04 | PROVIDERS: ATTEND Urology | DX: N36.8 Other specified disorders of urethra (principal) ==

== ENCOUNTER → 2024-02-25 | Outpatient (CLI) | payer MEDICARE ==
[~2024-02-25] MED LIST changes: +ARNU1INH INH; +ESTR62CR VG; +FLON50SP; +LENA10CA PO; +LEVO100T5 PO; +MAGN400T2 PO; +OMEP40CA5 PO; +ZIRG0.152 OU
== END ==
LOC: M CLY 09:08
PROVIDERS: ATTEND Family Medicine
DX: M25.562 Pain in left knee (principal); M25.462 Effusion, left knee

== ENCOUNTER → 2024-02-25 | Outpatient (REF) | payer MEDICARE ==
[2024-02-25 14:16] LABS: APPEARANCE, URINE CLEAR (CLEAR); BACTERIA, URINE AUTO 1+ (NEGATIVE); BILIRUBIN, URINE AUTO NEGATIVE (NEGATIVE); BLOOD, URINE BLOOD NEGATIVE (NEGATIVE); COLOR, URINE YELLOW (YELLOW); GLUCOSE, URINE (UA) AUTO NEGATIVE (NEGATIVE); KETONE, URINE AUTO NEGATIVE (NEGATIVE); LEUKOCYTE ESTERASE, URINE AUTO NEGATIVE (NEGATIVE); NITRITE, URINE AUTO NEGATIVE (NEGATIVE); PROTEIN, URINE AUTO NEGATIVE (NEGATIVE); RBC, URINE AUTO 1 /HPF (0-3); SPECIFIC GRAVITY URINE AUTO 1.005 (1.002-1.035); SQUAMOUS EPITHELIAL CELL UR AU 1 /HPF (0-6); UROBILINOGEN, URINE AUTO 0.2 mg/dL (0.0-2.0); WBC, URINE AUTO 0 /HPF (0-3)
== END ==
LOC: M LABDRAWC 11:37
PROVIDERS: ATTEND Urology
DX: N36.8 Other specified disorders of urethra (principal); Z79.899 Other long term (current) drug therapy

== ENCOUNTER 2024-03-16 06:12 | Day surgery (SDC) | payer MEDICARE ==
[~2024-03-16] VITALS: Ht 162.6 cm; Wt 82.6 kg
[~2024-03-16 06:12] MED LIST changes: +LR 1,000 ML IV SCH
[2024-03-16] MEDS ORDERED: ONDANSETRON 4MG 2ML VIAL As Ordered ONE (07:12)
[2024-03-16] MEDS ORDERED: propofoL 200 MG/20 ML VIAL As Ordered ONE (07:12)
[2024-03-16] MEDS ORDERED: LIDOCAINE 2% 100MG/5ML SDV (FOR ANES.) As Ordered ONE (07:12)
[2024-03-16] MEDS ORDERED: fentaNYL 100 MCG/2 ML INJECTION As Ordered ONE (07:13)
[2024-03-16] MEDS: ceFAZolin SOD 2 GM in IV 1 EA IV ONE (07:29)
[2024-03-16] MEDS ORDERED: ACETAMINOPHEN 1000MG 100ML IV BAG As Ordered ONE (07:53)
[2024-03-16] MEDS ORDERED: ATROPINE SULF 0.4 MG/ML 1ML VIAL As Ordered ONE (07:57)
[2024-03-16] MEDS ORDERED: HYDROMORPHONE HCL 0.5 MG/ 0.5 ML SYRINGE IV PRN (08:40)
[2024-03-16] MEDS ORDERED: ONDANSETRON 4MG 2ML VIAL IV PRN (08:40)
[2024-03-16] MEDS ORDERED: LR 1,000 ML IV SCH (08:40)
[2024-03-16] MEDS ORDERED: fentaNYL 100 MCG/2 ML INJECTION IV PRN (08:40)
[2024-03-16] MEDS ORDERED: oxyCODONE 5MG TAB PO PRN (08:40)
[2024-03-16] MEDS ORDERED: ePHEDrine SULFATE 25 MG/5 ML(5MG/ML) SYRINGE As Ordered ONE (08:53)
[2024-03-16] MEDS ORDERED: OXYB5TAB14 PO (08:58)
[2024-03-16] MEDS ORDERED: CEPH500C PO (08:58)
[2024-03-16] MEDS ORDERED: HYDR-3713 PO (08:58)
[2024-03-16 10:35] VITALS: BP 159/72; TEMP 96.9; O2SAT 100
[2024-03-16] MEDS: LIDOCAINE 1% SDV 30ML VIAL As Ordered ONE (10:36)
== END 2024-03-16 10:42 | disposition home or self-care (01) ==
LOC: M SDC 06:12
PROVIDERS: ATTEND Urology
DX: N36.8 Other specified disorders of urethra (principal); E89.0 Postprocedural hypothyroidism; R73.01 Impaired fasting glucose; I10 Essential (primary) hypertension; E03.9 Hypothyroidism, unspecified; J45.20 Mild intermittent asthma, uncomplicated; E78.2 Mixed hyperlipidemia; K21.9 Gastro-esophageal reflux disease without esophagitis; R00.2 Palpitations; R22.1 Localized swelling, mass and lump, neck; G62.9 Polyneuropathy, unspecified; M65.341 Trigger finger, right ring finger; M48.062 Spinal stenosis, lumbar region with neurogenic claudication; F32.A Depression, unspecified; C85.80 Other specified types of non-Hodgkin lymphoma, unspecified site; Z87.891 Personal history of nicotine dependence; M25.562 Pain in left knee; M25.462 Effusion, left knee; Z79.899 Other long term (current) drug therapy; Z79.51 Long term (current) use of inhaled steroids; Z79.52 Long term (current) use of systemic steroids; Z88.5 Allergy status to narcotic agent
CPT/HCPCS: 53275; 88305; J0131; J0461; J0665; J0690; J1100; J2405; J3010

== ENCOUNTER → 2024-03-23 | Outpatient (REF) | payer MEDICARE ==
[~2024-03-23] MED LIST changes: +CEPH500C PO; +HYDR-3713 PO; -LR 1,000 ML IV SCH; +OXYB5TAB14 PO
[2024-03-23 18:00] LABS: BASO % 0.8 % (0.0-1.0); EOS # 0.3 10^3/uL (0.0-0.5); HEMATOCRIT 33.9 % (36.0-47.0); HEMOGLOBIN 11.2 g/dl (12.0-15.5); LYMPH % 26.2 % (24.0-44.0); MEAN CORPUSCULAR VOLUME 90.9 fl (80.0-96.0); MONO # 0.3 10^3/uL (0.0-0.8); MONO % 9.3 % (2.0-8.0); NEUTROPHILS % 54.4 % (36.0-66.0); PLATELET COUNT, AUTOMATED 160 10^3/uL (150-450); RED BLOOD COUNT 3.73 10^6/uL (4.00-5.40); WHITE BLOOD COUNT 3.7 10^3/uL (4.0-10.0)
[2024-03-23 18:05] LABS: LDH LACTATE DEHYDROGENASE 153 U/L (120-246)
[2024-03-23 18:06] LABS: ALBUMIN 3.2 G/DL (3.2-5.2); ALKALINE PHOSPHATASE 80 U/L (35-104); ALT/SGPT 13 U/L (7.0-40); AST/SGOT 12 U/L (<34); BILIRUBIN,TOTAL 0.4 MG/DL (0.3-1.2); BLOOD UREA NITROGEN 11 MG/DL (9-23); CALCIUM LEVEL 8.7 MG/DL (8.3-10.6); CARBON DIOXIDE LEVEL 30 MMOL/L (20-31); CHLORIDE LEVEL 111 MMOL/L (98-107); GLOMERULAR FILTRATION RATE > 60.0 (>32); GLUCOSE, FASTING 90 MG/DL (74-106); POTASSIUM SERUM 4.2 MMOL/L (3.5-5.1); SODIUM LEVEL 143 MMOL/L (136-145); TOTAL PROTEIN 5.7 G/DL (5.7-8.2)
[2024-03-23 18:08] LABS: IMMUNOGLOBULIN A 66.1 MG/DL (40-350); IMMUNOGLOBULIN G 507 MG/DL (650-1600)
[2024-03-23 18:11] LABS: FERRITIN 29.3 NG/ML (7.3-270.7)
== END ==
LOC: M LABDRAWC 16:51
PROVIDERS: ATTEND Internal Medicine Medical Oncology
DX: C83.03 Small cell B-cell lymphoma, intra-abdominal lymph nodes (principal)

== ENCOUNTER → 2024-03-31 | Outpatient (REF) | payer MEDICARE | LOC: M SFHCCLAY 10:19 | PROVIDERS: ATTEND Physician Assistant | DX: R30.0 Dysuria (principal) ==

== ENCOUNTER → 2024-05-04 | Outpatient (REF) | payer MEDICARE ==
[2024-05-04 18:23] LABS: LDH LACTATE DEHYDROGENASE 176 U/L (120-246)
[2024-05-04 18:24] LABS: ALBUMIN 3.4 G/DL (3.2-5.2); ALKALINE PHOSPHATASE 88 U/L (35-104); ALT/SGPT 22 U/L (7.0-40); AST/SGOT 20 U/L (<34); BILIRUBIN,TOTAL 0.4 MG/DL (0.3-1.2); BLOOD UREA NITROGEN 16 MG/DL (9-23); CALCIUM LEVEL 9.2 MG/DL (8.3-10.6); CARBON DIOXIDE LEVEL 30 MMOL/L (20-31); CHLORIDE LEVEL 104 MMOL/L (98-107); GLOMERULAR FILTRATION RATE > 60.0 (>32); GLUCOSE, FASTING 101 MG/DL (74-106); POTASSIUM SERUM 4.5 MMOL/L (3.5-5.1); SODIUM LEVEL 140 MMOL/L (136-145)
[2024-05-04 18:35] LABS: BASO # 0.1 10^3/uL (0.0-0.2); EOS # 0.2 10^3/uL (0.0-0.5); HEMOGLOBIN 11.4 g/dl (12.0-15.5); LYMPH % 24.8 % (24.0-44.0); MEAN CORPUSCULAR HEMOGLOBIN 29.7 pg (27.0-33.0); MEAN CORPUSCULAR HGB CONC 32.6 g/dl (32.0-36.5); MEAN CORPUSCULAR VOLUME 91.1 fl (80.0-96.0); MONO # 0.4 10^3/uL (0.0-0.8); MONO % 8.7 % (2.0-8.0); NEUTROPHILS # 2.4 10^3/uL (1.5-8.5); NEUTROPHILS % 59.5 % (36.0-66.0); PLATELET COUNT, AUTOMATED 233 10^3/uL (150-450); RED BLOOD COUNT 3.84 10^6/uL (4.00-5.40)
== END ==
LOC: M LABDRAWC 16:59
PROVIDERS: ATTEND Internal Medicine Medical Oncology
DX: C83.03 Small cell B-cell lymphoma, intra-abdominal lymph nodes (principal)

== ENCOUNTER → 2024-08-16 | Outpatient (CLI) | payer MEDICARE | LOC: M RAD 09:16 | PROVIDERS: ATTEND Nurse Practitioner Family | DX: R39.12 Poor urinary stream (principal) ==

== ENCOUNTER → 2024-08-24 | Outpatient (REF) | payer MEDICARE | LOC: M SFHCCLAY 17:09 | PROVIDERS: ATTEND Nurse Practitioner Family | DX: R05.1 Acute cough (principal) ==